=== PATIENT | female | born 1935 | race Caucasian/White ===

== ENCOUNTER → 2017-10-03 16:00 | Outpatient (CLI) | payer MEDICARE, SELFPAY ==
[2017-10-03 17:12] LABS: Absolute Lymphocyte Count 2.24 X10^3/ul (0.83-4.51); Absolute Neutrophil Count 3.2 X10^3/uL (2.0-7.7); Basophil# 0.08 X10^3/uL; Basophil% 1.2 % (0-1); Eosinophil# 0.27 X10^3/uL; Eosinophils% 4.1 % (0-5); Hematocrit 38.8 % (37-47); Hemoglobin 12.4 g/dl (12.0-15.0); Lymphocyte # 2.24 X10^3/ul (4.0); Lymphocyte % 33.6 % (19-41); Mean Corpuscular Hgb 28.4 pg (27.0-32.0); Mean Platelet Vol. 12.4 fl (6.2-12.0); Monocyte# 0.84 X10^3/uL; Monocyte% 12.6 % (0-10); Neutrophil # 3.21 X10^3/uL (2.7-7.7); Neutrophil % 48.2 % (47-70); Platelet Count 203 K/mm3 (150-450); RBC Distribution Width CV 13.9 % (11.6-14.6); RBC Distribution Width SD 45.1 fl (35.1-43.9); Red Blood Count 4.36 M/mm3 (4.2-5.4); White Blood Count 6.7 K/mm3 (4.4-11.0)
[2017-10-03 17:15] LABS: POSITIVE COUNT NO; POSITIVE DIFFERENTIAL NO; POSITIVE MORPHOLOGY NO
[2017-10-03 18:23] LABS: ALB/GLOB Ratio 1.6 RATIO (0.9-2.4); AST(SGOT) 17 U/L (15-37); Alanine Aminotransfer ALT/SGPT 17 U/L (13-56); Albumin, Serum 3.9 g/dL (3.2-5.0); Alkaline Phosphatase 61 U/L (45-117); Anion Gap 8 (5-15); BUN 18 mg/dL (7-18); BUN/Creat Ratio 20.4 RATIO (10-20); Calcium,Total 8.9 mg/dL (8.5-10.1); Chloride 107 mmol/L (98-107); Creatinine, Serum 0.88 mg/dL (0.55-1.02); EST Glomerular Filtration Rate 65 mL/min (>60); Est Glom Filt Rate - Afr Amer 79 mL/min (>60); Globulin 2.5 g/dL (2.2-4.2); Glucose 85 mg/dL (74-106); Potassium 4.1 mmol/L (3.5-5.1); Protein, Total 6.4 g/dL (6.4-8.2); Sodium Level 140 mmol/L (136-145); Thyroid Stim Hormone (TSH) 1.67 uIU/mL (0.358-3.74)
[2017-10-04 08:45] LABS: Vitamin B12 1047 pg/mL (211-911)
== END ==
PROVIDERS: Family Provider Family Medicine; PCP Family Medicine; Visit Provider Family Medicine Geriatric Medicine
DX: I10 Essential (primary) hypertension (principal); F10.27 Alcohol dependence with alcohol-induced persisting dementia
CPT/HCPCS: 36415; 80053; 82607; 82746; 84443; 85025

== ENCOUNTER → 2018-02-25 14:49 | Outpatient (CLI) | payer MEDICARE, SELFPAY ==
--- NOTE | 2018-02-25 14:56 | RAD_ITS ---
STUDY: X-RAY - ABDOMEN/PELVIS REASON FOR EXAM: Female, 82 years old. Constipation TECHNIQUE: Upright and supine KUB. COMPARISON: None. FINDINGS: Mild chronic interstitial changes of the lungs, bibasilar. Limited characterization. No cardiomegaly. Thoracolumbar S-shaped scoliosis. Mild right greater than left hip joint DJD. Grossly normal size and position of the solid organs of the abdomen. No free air. Scattered gas in the small bowel, normal pattern. Prominent distributed stool burden of large bowel and rectum consistent with constipation. RAD/Abd Inc Decub and/or Erect IMPRESSION: The bowel pattern is consistent with constipation. Electronically Signed: Jules Lincoln, at 10:51 EDT Tel , Service support ,
== END ==
PROVIDERS: Family Provider Family Medicine; PCP Family Medicine; Visit Provider Family Medicine Geriatric Medicine
DX: K59.00 Constipation, unspecified (principal)
CPT/HCPCS: 74019

== ENCOUNTER → 2018-04-08 13:01 | Outpatient (CLI) | payer MEDICARE, SELFPAY ==
[2018-04-08 15:59] LABS: Absolute Lymphocyte Count 2.17 X10^3/ul (0.83-4.51); Absolute Neutrophil Count 3.2 X10^3/uL (2.0-7.7); Basophil# 0.06 X10^3/uL; Basophil% 0.9 % (0-1); Eosinophil# 0.25 X10^3/uL; Eosinophils% 3.8 % (0-5); Hematocrit 40.1 % (37-47); Hemoglobin 12.8 g/dl (12.0-15.0); Lymphocyte # 2.17 X10^3/ul (4.0); Lymphocyte % 32.6 % (19-41); Mean Corp Hgb Conc 31.9 g/gl (32-36); Mean Corpuscular Volume 90.7 fL (81-99); Mean Platelet Vol. 12.3 fl (6.2-12.0); Monocyte# 0.97 X10^3/uL; Monocyte% 14.6 % (0-10); Neutrophil % 47.9 % (47-70); Platelet Count 193 K/mm3 (150-450); RBC Distribution Width CV 13.7 % (11.6-14.6); RBC Distribution Width SD 45.2 fl (35.1-43.9); Red Blood Count 4.42 M/mm3 (4.2-5.4); White Blood Count 6.7 K/mm3 (4.4-11.0)
[2018-04-08 16:10] LABS: POSITIVE COUNT NO; POSITIVE DIFFERENTIAL NO; POSITIVE MORPHOLOGY NO
[2018-04-08 16:31] LABS: ALB/GLOB Ratio 1.4 RATIO (0.9-2.4); AST(SGOT) 22 U/L (15-37); Alanine Aminotransfer ALT/SGPT 24 U/L (13-56); Albumin, Serum 3.7 g/dL (3.2-5.0); Alkaline Phosphatase 71 U/L (45-117); Anion Gap 10 (5-15); BUN 10 mg/dL (7-18); Calcium,Total 8.6 mg/dL (8.5-10.1); Chloride 109 mmol/L (98-107); Creatinine, Serum 0.91 mg/dL (0.55-1.02); EST Glomerular Filtration Rate 63 mL/min (>60); Est Glom Filt Rate - Afr Amer 76 mL/min (>60); Globulin 2.7 g/dL (2.2-4.2); Glucose 79 mg/dL (74-106); Potassium 4.3 mmol/L (3.5-5.1); Protein, Total 6.4 g/dL (6.4-8.2); Sodium Level 144 mmol/L (136-145); Thyroid Stim Hormone (TSH) 1.35 uIU/mL (0.358-3.74)
[2018-04-09 08:36] LABS: Vitamin D,25 Hydroxy 18.7 ng/mL (29.95-100.01)
== END ==
PROVIDERS: Visit Provider Family Medicine Geriatric Medicine
DX: E55.9 Vitamin D deficiency, unspecified (principal); R53.83 Other fatigue
CPT/HCPCS: 36415; 80053; 82306; 84443; 85025

== ENCOUNTER → 2018-10-07 12:07 | Outpatient (CLI) | payer MEDICARE, SELFPAY ==
[2018-10-07 16:42] LABS: Absolute Lymphocyte Count 2.53 X10^3/ul (0.83-4.51); Absolute Neutrophil Count 3.3 X10^3/uL (2.0-7.7); Basophil# 0.08 X10^3/uL; Basophil% 1.1 % (0-1); Eosinophils% 4.2 % (0-5); Hematocrit 42.3 % (37-47); Hemoglobin 13.2 g/dl (12.0-15.0); Lymphocyte # 2.53 X10^3/ul (4.0); Lymphocyte % 35.4 % (19-41); Mean Corp Hgb Conc 31.2 g/gl (32-36); Mean Corpuscular Hgb 28.6 pg (27.0-32.0); Mean Corpuscular Volume 91.8 fL (81-99); Mean Platelet Vol. 12.6 fl (6.2-12.0); Monocyte# 0.89 X10^3/uL; Monocyte% 12.4 % (0-10); Neutrophil # 3.33 X10^3/uL (2.7-7.7); Neutrophil % 46.6 % (47-70); Platelet Count 210 K/mm3 (150-450); RBC Distribution Width CV 14.1 % (11.6-14.6); RBC Distribution Width SD 46.8 fl (35.1-43.9); Red Blood Count 4.61 M/mm3 (4.2-5.4); White Blood Count 7.2 K/mm3 (4.4-11.0)
[2018-10-07 16:52] LABS: Vitamin D,25 Hydroxy 42.5 ng/mL (29.95-100.01)
[2018-10-07 17:01] LABS: POSITIVE COUNT NO; POSITIVE DIFFERENTIAL NO; POSITIVE MORPHOLOGY NO
[2018-10-07 17:10] LABS: ALB/GLOB Ratio 1.5 RATIO (0.9-2.4); AST(SGOT) 20 U/L (15-37); Alanine Aminotransfer ALT/SGPT 20 U/L (13-56); Alkaline Phosphatase 70 U/L (45-117); Anion Gap 11 (5-15); BUN 19 mg/dL (7-18); BUN/Creat Ratio 20.9 RATIO (10-20); Calcium,Total 8.5 mg/dL (8.5-10.1); Chloride 106 mmol/L (98-107); Creatinine, Serum 0.91 mg/dL (0.55-1.02); EST Glomerular Filtration Rate 63 mL/min (>60); Est Glom Filt Rate - Afr Amer 76 mL/min (>60); Globulin 2.7 g/dL (2.2-4.2); Glucose 76 mg/dL (74-106); Protein, Total 6.7 g/dL (6.4-8.2); Sodium Level 141 mmol/L (136-145); Thyroid Stim Hormone (TSH) 1.65 uIU/mL (0.358-3.74)
== END ==
PROVIDERS: Visit Provider Family Medicine Geriatric Medicine
DX: E55.9 Vitamin D deficiency, unspecified (principal); R53.83 Other fatigue
CPT/HCPCS: 36415; 80053; 82306; 84443; 85025

== ENCOUNTER → 2018-10-21 11:30 | Outpatient (CLI) | payer MEDICARE, SELFPAY | PROVIDERS: Family Provider Family Medicine Geriatric Medicine; PCP Family Medicine Geriatric Medicine; Referring Provider Family Medicine Geriatric Medicine; Visit Provider Family Medicine Geriatric Medicine | DX: J11.1 Influenza due to unidentified influenza virus with other respiratory manifestations (principal) | CPT/HCPCS: 87633 ==

== ENCOUNTER → 2018-11-07 11:48 | Outpatient (CLI) | payer MEDICARE, SELFPAY ==
--- NOTE | 2018-11-07 11:52 | BI_ITS ---
MAMMOGRAPHY - BILATERAL SCREENING REASON FOR EXAM: Female, 83 years old. Routine annual screening examination. PERTINENT HISTORY: Non-contributory. Remote right excisional breast biopsy and bilateral breast aspiration. TECHNIQUE: Digital bilateral breast navjot (3D mammographic acquisition) in the CC and MLO projections. 2-D mediolateral oblique (MLO) and craniocaudad (CC) views of both breasts were obtained. CAD: Full Field Digital Mammography with Computer Added Detection was performed. COMPARISON: No comparison mammograms available at this time. If any prior films become available, an addendum to this report can be generated. FINDINGS: Breast Composition: The breasts are heterogeneously dense, which may obscure small masses. There are no dominant masses or suspicious calcifications. No other significant abnormalities are identified. BI/SCREENING MAMM (CAD), BILAT IMPRESSION: Negative screening mammogram. Yearly followup mammogram recommended. (A) ASSESSMENT CATEGORY: BIRADS Category 1: Negative. A letter regarding these results will be sent to the patient by the facility within 30 days. Approximately 10% of breast cancers are not detected by mammography. A normal mammogram should not delay biopsy of a clinically suspicious abnormality. [id number] Electronically Signed: Tobi Cosme, at 15:04 EDT , Service support ,
== END ==
PROVIDERS: Family Provider Family Medicine Geriatric Medicine; PCP Family Medicine Geriatric Medicine; Referring Provider Family Medicine Geriatric Medicine; Visit Provider Family Medicine Geriatric Medicine
DX: Z12.31 Encounter for screening mammogram for malignant neoplasm of breast (principal)
CPT/HCPCS: 77063; 77067

== ENCOUNTER → 2019-01-27 16:09 | Outpatient (CLI) | payer MEDICARE, SELFPAY ==
--- NOTE | 2019-01-27 16:12 | RAD_ITS ---
STUDY: X-RAY - RIGHT HAND REASON FOR EXAM: Female, 83 years old. Fall, hand pain TECHNIQUE: 3 view(s) of the hand. COMPARISON: None. FINDINGS: Normal radiocarpal articulation. Normal distal radioulnar joint. Normal visualized carpal bones. There is degenerative joint disease of the scaphotrapezium / trapezoid articulation. The remainder of the carpal articulations are normal. There is degenerative arthrosis of the carpometacarpal (CMC) articulation of the thumb. Normal second through fifth carpometacarpal joints. Normal metacarpi. Normal metacarpophalangeal joint of the thumb. Normal interphalangeal joint of the thumb. Normal proximal and distal phalanges of the thumb. Normal metacarpophalangeal joints of the second through fifth fingers. There is diffuse articular joint space narrowing of the proximal and distal interphalangeal joints of the second through fifth fingers, but without erosive changes or periarticular soft tissue swelling. Normal phalanges of the second through fifth fingers. The soft tissue structures are unremarkable. RAD/Hand Min 3 Views IMPRESSION: 1. No acute fracture or dislocation. 2. Moderate osteoarthritis. Electronically Signed: Jules Mcelroy MD at 16:43 EDT Tel , Service support ,
--- NOTE | 2019-01-27 16:13 | RAD_ITS ---
STUDY: X-RAY - RIGHT WRIST REASON FOR EXAM: Female, 83 years old. Fall, wrist pain, hand pain TECHNIQUE: 3 view(s) of the wrist were obtained. COMPARISON: None. FINDINGS: Normal visualized distal radius and ulna. Normal radiocarpal articulation. Normal distal radioulnar articulation. Normal carpal bones. There is degenerative arthrosis of the carpal articulations. There is degenerative arthrosis of the carpometacarpal articulation of the thumb. Normal second through fifth carpometacarpal articulations. Normal visualized metacarpal bones. The soft tissue structures are unremarkable. RAD/Wrist min 3 Views IMPRESSION: 1. No acute fracture or dislocation. 2. Moderate triscaphe joint and first carpometacarpal joint arthrosis. Electronically Signed: Jules Mcelroy MD at 16:42 EDT Tel , Service support ,
== END ==
PROVIDERS: Family Provider Family Medicine Geriatric Medicine; PCP Family Medicine Geriatric Medicine; Referring Provider Family Medicine Geriatric Medicine; Visit Provider Family Medicine Geriatric Medicine
DX: M25.541 Pain in joints of right hand (principal); M25.531 Pain in right wrist
CPT/HCPCS: 73110; 73130

== ENCOUNTER → 2019-04-07 09:15 | Outpatient (CLI) | payer MEDICARE, SELFPAY ==
[2019-04-07 12:17] LABS: Absolute Neutrophil Count 2.6 X10^3/uL (2.0-7.7); Basophil# 0.02 X10^3/uL; Basophil% 0.4 % (0-1); Eosinophil# 1.09 X10^3/uL; Eosinophils% 19.5 % (0-5); Hematocrit 41.9 % (37-47); Lymphocyte % 23.2 % (19-41); Mean Corpuscular Hgb 28.4 pg (27.0-32.0); Mean Corpuscular Volume 91.5 fL (81-99); Mean Platelet Vol. 12.3 fl (6.2-12.0); Monocyte# 0.56 X10^3/uL; NRBC Flagged by Analyzer 0 % (0-5); Neutrophil % 46.4 % (47-70); Platelet Count 170 K/mm3 (150-450); RBC Distribution Width CV 13.2 % (11.6-14.6); RBC Distribution Width SD 44.7 fl (35.1-43.9); Red Blood Count 4.58 M/mm3 (4.2-5.4); White Blood Count 5.6 K/mm3 (4.4-11.0)
[2019-04-07 12:41] LABS: ALB/GLOB Ratio 1.2 RATIO (0.9-2.4); AST(SGOT) 12 U/L (15-37); Alanine Aminotransfer ALT/SGPT 16 U/L (13-56); Albumin, Serum 3.6 g/dL (3.2-5.0); Alkaline Phosphatase 80 U/L (45-117); Anion Gap 6 (5-15); BUN 12 mg/dL (7-18); BUN/Creat Ratio 12.9 RATIO (10-20); Calcium,Total 8.9 mg/dL (8.5-10.1); Chloride 108 mmol/L (98-107); Creatinine, Serum 0.93 mg/dL (0.55-1.02); EST Glomerular Filtration Rate 61 mL/min (>60); Est Glom Filt Rate - Afr Amer 74 mL/min (>60); Globulin 3.1 g/dL (2.2-4.2); Glucose 85 mg/dL (74-106); Potassium 3.7 mmol/L (3.5-5.1); Protein, Total 6.7 g/dL (6.4-8.2); Sodium Level 144 mmol/L (136-145); Thyroid Stim Hormone (TSH) 2.38 uIU/mL (0.358-3.74)
[2019-04-07 13:17] LABS: Vitamin D,25 Hydroxy 46.2 ng/mL (29.95-100.01)
== END ==
PROVIDERS: Family Provider Family Medicine Geriatric Medicine; PCP Family Medicine Geriatric Medicine; Visit Provider Family Medicine Geriatric Medicine
DX: E55.9 Vitamin D deficiency, unspecified (principal); R53.83 Other fatigue
CPT/HCPCS: 36415; 80053; 82306; 84443; 85025

== ENCOUNTER → 2019-07-13 14:33 | Outpatient (CLI) | payer MEDICARE, SELFPAY ==
[2019-04-17 11:34] VITALS: BMI 22.8
--- NOTE | 2019-07-13 14:35 | RAD_ITS ---
STUDY: X-RAY - LUMBAR SPINE REASON FOR EXAM: Female, 83 years old. Chronic back pain. TECHNIQUE: 3 view(s) of the lumbar spine were obtained. COMPARISON: None FINDINGS: Normal lumbar lordosis. There is mild kyphosis at thoracolumbar junction. There is scoliosis of the lumbar spine, convexity to the left. There is a normal alignment of the vertebrae. There is diffuse demineralization with multi-level endplate spondylosis. There is multi-level degenerative disc disease with multi-level disc space narrowing. There is mild wedging of the T12 vertebral body consistent with mild compression fracture. Multilevel bilateral facet hypertrophic changes noted. There is atherosclerotic calcification of the abdominal aorta without a demonstrated aneurysm. RAD/Lumbar Spine 2 or 3 Views IMPRESSION: Osteopenia along with multilevel degenerative disease as described above. Mild compression fracture of T12, stable since 07/13/2019. Electronically Signed: Jessica Payne MD at 21:14 EST , Service support ,
--- NOTE | 2019-07-13 14:35 | RAD_ITS ---
STUDY: X-RAY - ABDOMEN/PELVIS REASON FOR EXAM: Female, 83 years old. Abdominal pain. TECHNIQUE: AP supine and upright views of the abdomen and pelvis. COMPARISON: 02/25/2018. FINDINGS: Normal visualized lung bases. There is abundant fecal debris within the colon consistent with constipation. The small bowel is normal. There is no demonstrated free abdominal air. The visualized liver, spleen and kidneys are grossly normal in size and morphology. Normal soft tissue structures. Scoliosis of the lumbar spine, convexity to the left. Bilateral degenerative disease of the hips, right more severe compared to left. Degenerative disease of the SI joints and pubic symphysis. RAD/Abd Inc Decub and/or Erect IMPRESSION: Constipation. Electronically Signed: Jessica Payne MD at 21:12 EST , Service support ,
--- NOTE | 2019-07-13 14:36 | RAD_ITS ---
STUDY: X-RAY - THORACIC SPINE REASON FOR EXAM: Female, 83 years old. Chronic back pain. TECHNIQUE: 3 view(s) of the thoracic spine were obtained. COMPARISON: None. FINDINGS: There is an increase in the normal thoracic kyphosis. There is mild scoliosis of thoracolumbar spine, convexity to the right. There is demineralization of the thoracic spine with endplate spondylosis. There is multilevel disc space narrowing of the thoracic spine. There is multilevel vacuum phenomenon through the lower thoracic spine. There is mild to moderate compression fracture of T12. There is a decrease in vertebral body height of L1 due to concavity of the superior endplate, likely due to underlying chronic osteopenia and degenerative disease. The soft tissue structures are unremarkable. RAD/Thoracic Spine 2 Views IMPRESSION: Diffuse osteopenia along with multilevel degenerative disease as described above. Compression fracture of T12 with slight decrease in vertebral body of L1. Electronically Signed: Jessica Payne MD at 21:19 EST , Service support ,
[2019-07-13 16:56] LABS: Absolute Lymphocyte Count 2.41 X10^3/uL (0.83-4.51); Basophil# 0.09 X10^3/uL; Basophil% 1.2 % (0-1); Eosinophil# 0.32 X10^3/uL; Eosinophils% 4.2 % (0-5); Hematocrit 44.3 % (37-47); Hemoglobin 13.7 g/dL (12.0-15.0); Lymphocyte # 2.41 X10^3/ul (4.0); Lymphocyte % 31.8 % (19-41); Mean Corp Hgb Conc 30.9 g/dL (32-36); Mean Corpuscular Hgb 28.5 pg (27.0-32.0); Mean Corpuscular Volume 92.1 fL (81-99); Monocyte# 0.74 X10^3/uL; Monocyte% 9.8 % (0-10); NRBC Flagged by Analyzer 0 % (0-5); Neutrophil # 3.97 X10^3/uL (2.7-7.7); Neutrophil % 52.5 % (47-70); Platelet Count 233 K/mm3 (150-450); RBC Distribution Width CV 13.8 % (11.6-14.6); RBC Distribution Width SD 46.6 fl (35.1-43.9); Red Blood Count 4.81 M/mm3 (4.2-5.4); White Blood Count 7.6 K/mm3 (4.4-11.0)
[2019-07-13 17:22] LABS: ALB/GLOB Ratio 1.5 RATIO (0.9-2.4); AST(SGOT) 22 U/L (15-37); Alanine Aminotransfer ALT/SGPT 22 U/L (13-56); Albumin, Serum 4.1 g/dL (3.2-5.0); Alkaline Phosphatase 84 U/L (45-117); Anion Gap 5 (5-15); BUN 21 mg/dL (7-18); BUN/Creat Ratio 20.6 RATIO (10-20); Calcium,Total 9.7 mg/dL (8.5-10.1); Chloride 108 mmol/L (98-107); Creatinine, Serum 1.02 mg/dL (0.55-1.02); EST Glomerular Filtration Rate 55 mL/min (>60); Est Glom Filt Rate - Afr Amer 67 mL/min (>60); Globulin 2.8 g/dL (2.2-4.2); Glucose 94 mg/dL (74-106); Potassium 4.2 mmol/L (3.5-5.1); Protein, Total 6.9 g/dL (6.4-8.2); Sodium Level 140 mmol/L (136-145)
== END ==
PROVIDERS: Family Provider Family Medicine Geriatric Medicine; PCP Family Medicine Geriatric Medicine; Referring Provider Family Medicine Geriatric Medicine; Visit Provider Family Medicine Geriatric Medicine
DX: R53.83 Other fatigue (principal); M54.9 Dorsalgia, unspecified; R10.9 Unspecified abdominal pain
CPT/HCPCS: 36415; 72070; 72100; 74019; 80053; 85025

== ENCOUNTER → 2019-10-12 11:19 | Outpatient (CLI) | payer MEDICARE, SELFPAY ==
[2019-04-17 11:34] VITALS: BMI 22.8
--- NOTE | 2019-10-12 12:15 | RAD_ITS ---
STUDY: X-RAY CHEST REASON FOR EXAM: Female, 84 years old. patient states she has no appetite, unintentional weight loss, no other symptoms or complaints TECHNIQUE: PA and lateral views of the chest. COMPARISON: None. FINDINGS: The lungs are clear and expanded. There is no demonstrated pleural abnormality. Normal size heart. Normal mediastinum and cristina. Normal visualized pulmonary arteries. There is atherosclerotic calcification of the aortic arch with tortuosity. There are diffuse degenerative changes of the visualized thoracic spine. There is degenerative osteoarthritis of the bilateral shoulders. There is no demonstrated abnormality of the visualized soft tissue structures of the upper abdomen. RAD/Chest PA and Lateral IMPRESSION: No acute cardiopulmonary disease. Electronically Signed: Jessica Payne MD at 0:14 EDT , Service support ,
[2019-10-12 12:23] LABS: Absolute Lymphocyte Count 2.28 X10^3/uL (0.83-4.51); Absolute Neutrophil Count 2.9 X10^3/uL (2.0-7.7); Basophil# 0.08 X10^3/uL; Basophil% 1.2 % (0-1); Eosinophil# 0.26 X10^3/uL; Eosinophils% 4.1 % (0-5); Hematocrit 39.1 % (37-47); Hemoglobin 11.9 g/dL (12.0-15.0); Lymphocyte # 2.28 X10^3/ul (4.0); Lymphocyte % 35.6 % (19-41); Mean Corp Hgb Conc 30.4 g/dL (32-36); Mean Corpuscular Hgb 28.4 pg (27.0-32.0); Mean Corpuscular Volume 93.3 fL (81-99); Mean Platelet Vol. 12.8 fl (6.2-12.0); Monocyte% 12.5 % (0-10); NRBC Flagged by Analyzer 0 % (0-5); Neutrophil # 2.94 X10^3/uL (2.7-7.7); Neutrophil % 45.8 % (47-70); Platelet Count 224 K/mm3 (150-450); RBC Distribution Width CV 14.6 % (11.6-14.6); Red Blood Count 4.19 M/mm3 (4.2-5.4); White Blood Count 6.4 K/mm3 (4.4-11.0)
[2019-10-12 12:37] LABS: ALB/GLOB Ratio 1.4 RATIO (0.9-2.4); AST(SGOT) 20 U/L (15-37); Alanine Aminotransfer ALT/SGPT 27 U/L (13-56); Albumin, Serum 3.7 g/dL (3.2-5.0); Alkaline Phosphatase 71 U/L (45-117); Anion Gap 8 (5-15); BUN 18 mg/dL (7-18); BUN/Creat Ratio 22.7 RATIO (10-20); Calcium,Total 8.6 mg/dL (8.5-10.1); Chloride 106 mmol/L (98-107); Creatinine, Serum 0.79 mg/dL (0.55-1.02); EST Glomerular Filtration Rate 73 mL/min (>60); Est Glom Filt Rate - Afr Amer 89 mL/min (>60); Globulin 2.7 g/dL (2.2-4.2); Glucose 91 mg/dL (74-106); Potassium 4.6 mmol/L (3.5-5.1); Protein, Total 6.4 g/dL (6.4-8.2); Sodium Level 141 mmol/L (136-145); Thyroid Stim Hormone (TSH) 1.52 uIU/mL (0.358-3.74); Vitamin D,25 Hydroxy 72.4 ng/mL
== END ==
PROVIDERS: PCP Family Medicine Geriatric Medicine; Referring Provider Family Medicine Geriatric Medicine; Visit Provider Family Medicine Geriatric Medicine
DX: E55.9 Vitamin D deficiency, unspecified (principal); R53.83 Other fatigue; R63.4 Abnormal weight loss
CPT/HCPCS: 36415; 71046; 80053; 82306; 84443; 85025

== ENCOUNTER → 2019-12-25 12:43 | Outpatient (CLI) | payer MEDICARE, SELFPAY ==
[2019-04-17 11:34] VITALS: BMI 22.8
--- NOTE | 2019-12-25 12:45 | BI_ITS ---
MAMMOGRAPHY - BILATERAL SCREENING REASON FOR EXAM: Female, 84 years old. Routine annual screening examination. PERTINENT HISTORY: Non-contributory. Remote right excisional breast biopsy. TECHNIQUE: Digital bilateral breast shayy (3D mammographic acquisition) in the CC and MLO projections. 2-D mediolateral oblique (MLO) and craniocaudad (CC) views of both breasts were obtained. CAD: Full Field Digital Mammography with Computer Added Detection was performed. COMPARISON: Comparison is made with prior examination dated November 07, 2018. FINDINGS: Breast Composition: The breasts are heterogeneously dense, which may obscure small masses. There are no dominant masses or suspicious calcifications. No other significant abnormalities are identified. There has been no significant change since the prior study. BI/SCREEN MAMM (CAD) W/SHAYY BILAT IMPRESSION: Stable bilateral screening mammogram. Yearly follow-up mammogram recommended. (A) ASSESSMENT CATEGORY: BIRADS Category 1: Negative. A letter regarding these results will be sent to the patient by the facility within 30 days. Approximately 10% of breast cancers are not detected by mammography. A normal mammogram should not delay biopsy of a clinically suspicious abnormality. [id number] Electronically Signed: Tobi Cosme, at 13:32 EDT , Service support ,
== END ==
PROVIDERS: PCP Family Medicine Geriatric Medicine; Referring Provider Family Medicine Geriatric Medicine; Visit Provider Family Medicine Geriatric Medicine
DX: Z12.31 Encounter for screening mammogram for malignant neoplasm of breast (principal)
CPT/HCPCS: 77063; 77067

== ENCOUNTER → 2020-04-12 11:53 | Outpatient (CLI) | payer MEDICARE, SELFPAY ==
[2019-04-17 11:34] VITALS: BMI 22.8
[2020-04-12 12:45] LABS: Absolute Lymphocyte Count 2.12 X10^3/uL (0.83-4.51); Basophil# 0.07 X10^3/uL; Basophil% 1.1 % (0-1); Eosinophil# 0.19 X10^3/uL; Eosinophils% 3.1 % (0-5); Hematocrit 40.2 % (37-47); Hemoglobin 12.5 g/dL (12.0-15.0); Lymphocyte # 2.12 X10^3/ul (4.0); Lymphocyte % 34.5 % (19-41); Mean Corp Hgb Conc 31.1 g/dL (32-36); Mean Corpuscular Hgb 28.9 pg (27.0-32.0); Mean Corpuscular Volume 92.8 fL (81-99); Mean Platelet Vol. 12.4 fl (6.2-12.0); Monocyte# 0.76 X10^3/uL; Monocyte% 12.4 % (0-10); NRBC Flagged by Analyzer 0 % (0-5); Neutrophil # 2.97 X10^3/uL (2.7-7.7); Neutrophil % 48.4 % (47-70); Platelet Count 223 K/mm3 (150-450); RBC Distribution Width CV 13.5 % (11.6-14.6); RBC Distribution Width SD 45.9 fl (35.1-43.9); Red Blood Count 4.33 M/mm3 (4.2-5.4); White Blood Count 6.1 K/mm3 (4.4-11.0)
[2020-04-12 13:22] LABS: Vitamin D,25 Hydroxy 59.5 ng/mL
[2020-04-12 13:27] LABS: ALB/GLOB Ratio 1.5 RATIO (0.9-2.4); AST(SGOT) 16 U/L (15-37); Alanine Aminotransfer ALT/SGPT 17 U/L (13-56); Albumin, Serum 3.8 g/dL (3.2-5.0); Alkaline Phosphatase 77 U/L (45-117); Anion Gap 3 (5-15); BUN 12 mg/dL (7-18); BUN/Creat Ratio 14.6 RATIO (10-20); Calcium,Total 8.6 mg/dL (8.5-10.1); Chloride 111 mmol/L (98-107); Creatinine, Serum 0.82 mg/dL (0.55-1.02); EST Glomerular Filtration Rate 71 mL/min (>60); Est Glom Filt Rate - Afr Amer 85 mL/min (>60); Globulin 2.6 g/dL (2.2-4.2); Glucose 77 mg/dL (74-106); Protein, Total 6.4 g/dL (6.4-8.2); Sodium Level 144 mmol/L (136-145); Thyroid Stim Hormone (TSH) 1.57 uIU/mL (0.358-3.74)
== END ==
PROVIDERS: PCP Family Medicine Geriatric Medicine; Visit Provider Family Medicine Geriatric Medicine
DX: E55.9 Vitamin D deficiency, unspecified (principal); R53.83 Other fatigue
CPT/HCPCS: 36415; 80053; 82306; 84443; 85025

== ENCOUNTER → 2020-08-16 19:50 | Outpatient (CLI) | payer MEDICARE, SELFPAY ==
[2020-08-16 18:09] VITALS: BMI 19.5
== END ==
PROVIDERS: PCP Family Medicine Geriatric Medicine; Referring Provider Physician Assistant Surgical; Visit Provider Physician Assistant Surgical
DX: R19.7 Diarrhea, unspecified (principal)
CPT/HCPCS: 87635; U0005; U0003

== ENCOUNTER → 2020-10-12 10:25 | Outpatient (CLI) | payer MEDICARE, SELFPAY ==
[2020-08-16 18:09] VITALS: BMI 19.5
[2020-10-12 12:26] LABS: Absolute Lymphocyte Count 2.11 X10^3/uL (0.83-4.51); Absolute Neutrophil Count 2.6 X10^3/uL (2.0-7.7); Basophil# 0.07 X10^3/uL; Basophil% 1.2 % (0-1); Eosinophil# 0.23 X10^3/uL; Eosinophils% 3.9 % (0-5); Hematocrit 39.6 % (37-47); Hemoglobin 12.3 g/dL (12.0-15.0); Lymphocyte # 2.11 X10^3/ul (4.0); Lymphocyte % 35.9 % (19-41); Mean Corp Hgb Conc 31.1 g/dL (32-36); Mean Corpuscular Hgb 28.3 pg (27.0-32.0); Mean Platelet Vol. 12.1 fl (6.2-12.0); Monocyte# 0.84 X10^3/uL; Monocyte% 14.3 % (0-10); NRBC Flagged by Analyzer 0 % (0-5); Neutrophil # 2.61 X10^3/uL (2.7-7.7); Neutrophil % 44.4 % (47-70); Platelet Count 219 K/mm3 (150-450); RBC Distribution Width CV 13.9 % (11.6-14.6); RBC Distribution Width SD 46.9 fl (35.1-43.9); Red Blood Count 4.35 M/mm3 (4.2-5.4); White Blood Count 5.9 K/mm3 (4.4-11.0)
[2020-10-12 12:49] LABS: Vitamin D,25 Hydroxy 41.3 ng/mL
[2020-10-12 12:57] LABS: ALB/GLOB Ratio 1.5 RATIO (0.9-2.4); AST(SGOT) 16 U/L (15-37); Alanine Aminotransfer ALT/SGPT 23 U/L (13-56); Albumin, Serum 3.9 g/dL (3.2-5.0); Alkaline Phosphatase 70 U/L (45-117); Anion Gap 7 (5-15); BUN 13 mg/dL (7-18); BUN/Creat Ratio 14.5 RATIO (10-20); Chloride 107 mmol/L (98-107); EST Glomerular Filtration Rate 64 mL/min (>60); Est Glom Filt Rate - Afr Amer 77 mL/min (>60); Globulin 2.6 g/dL (2.2-4.2); Glucose 97 mg/dL (74-106); Potassium 4.5 mmol/L (3.5-5.1); Protein, Total 6.5 g/dL (6.4-8.2); Sodium Level 141 mmol/L (136-145); Thyroid Stim Hormone (TSH) 1.68 uIU/mL (0.358-3.74)
== END ==
PROVIDERS: PCP Family Medicine Geriatric Medicine; Visit Provider Family Medicine Geriatric Medicine
DX: E55.9 Vitamin D deficiency, unspecified (principal); R53.83 Other fatigue
CPT/HCPCS: 36415; 80053; 82306; 84443; 85025

== ENCOUNTER → 2020-12-23 12:56 | Outpatient (CLI) | payer MEDICARE, SELFPAY ==
[2020-08-16 18:09] VITALS: BMI 19.5
--- NOTE | 2020-12-23 13:18 | BI_ITS ---
MAMMOGRAPHY - BILATERAL SCREENING 3-D TOMOSYNTHESIS REASON FOR EXAM: Female, 85 years old. Routine screening PERTINENT HISTORY: No significant family history. TECHNIQUE: 2-D mammograms and 3-D Tomosynthesis of the breast (s) were performed. CAD was performed. COMPARISON: 12/25/2019 FINDINGS: The breast composition is heterogeneously dense that can obscure small breast masses. Scattered benign calcifications are seen. No dense spiculated masses or suspicious microcalcifications are identified. No architectural distortion is identified. There is no skin thickening or retraction. There has been no significant change since the prior study. BI/SCRN MAMM (CAD)W/SHAYY BILAT IMPRESSION: No mammographic signs of malignancy. Routine yearly mammograms recommended. ASSESSMENT CATEGORY: BIRADS Category 1: Negative. A letter regarding these results will be sent to the patient by the facility within 30 days. FOLLOW UP RECOMMENDATION: Yearly follow up mammogram recommended. (A) Approximately 10% of breast cancers are not detected by mammography. A normal mammogram should not delay biopsy of a clinically suspicious abnormality. Electronically Signed: Cricket Baum MD at 14:25 EDT , Service support ,
== END ==
PROVIDERS: PCP Family Medicine Geriatric Medicine; Referring Provider Family Medicine Geriatric Medicine; Visit Provider Family Medicine Geriatric Medicine
DX: Z12.31 Encounter for screening mammogram for malignant neoplasm of breast (principal)
CPT/HCPCS: 77063; 77067

== ENCOUNTER → 2021-04-12 11:47 | Outpatient (CLI) | payer MEDICARE, SELFPAY ==
[2021-04-12 12:35] LABS: Absolute Lymphocyte Count 1.65 X10^3/uL (0.83-4.51); Absolute Neutrophil Count 3.4 X10^3/uL (2.0-7.7); Basophil% 1.6 % (0-1); Eosinophil# 0.44 X10^3/uL; Eosinophils% 6.8 % (0-5); Hemoglobin 12.6 g/dL (12.0-15.0); Lymphocyte # 1.65 X10^3/ul (0.83-4.51); Lymphocyte % 25.6 % (19-41); Mean Corp Hgb Conc 31.5 g/dL (32-36); Mean Corpuscular Hgb 28.4 pg (27.0-32.0); Mean Corpuscular Volume 90.1 fL (81-99); Mean Platelet Vol. 11.5 fl (6.2-12.0); Monocyte# 0.84 X10^3/uL; NRBC Flagged by Analyzer 0 % (0-5); Neutrophil % 52.7 % (47-70); Platelet Count 211 K/mm3 (150-450); RBC Distribution Width CV 13.4 % (11.6-14.6); RBC Distribution Width SD 44.3 fl (35.1-43.9); Red Blood Count 4.44 M/mm3 (4.2-5.4); White Blood Count 6.5 K/mm3 (4.4-11.0)
[2021-04-12 13:06] LABS: Vitamin D,25 Hydroxy 40.9 ng/mL
[2021-04-12 13:12] LABS: ALB/GLOB Ratio 1.3 RATIO (0.9-2.4); AST(SGOT) 18 U/L (15-37); Alanine Aminotransfer ALT/SGPT 21 U/L (13-56); Albumin, Serum 3.7 g/dL (3.2-5.0); Alkaline Phosphatase 80 U/L (45-117); Anion Gap 3 (5-15); BUN 15 mg/dL (7-18); BUN/Creat Ratio 19.5 RATIO (10-20); Chloride 108 mmol/L (98-107); Creatinine, Serum 0.77 mg/dL (0.55-1.02); EST Glomerular Filtration Rate 76 mL/min (>60); Est Glom Filt Rate - Afr Amer 92 mL/min (>60); Globulin 2.9 g/dL (2.2-4.2); Glucose 88 mg/dL (74-106); Potassium 4.2 mmol/L (3.5-5.1); Protein, Total 6.6 g/dL (6.4-8.2); Sodium Level 140 mmol/L (136-145); Thyroid Stim Hormone (TSH) 1.41 uIU/mL (0.358-3.74)
== END ==
PROVIDERS: PCP Family Medicine Geriatric Medicine; Visit Provider Family Medicine Geriatric Medicine
DX: E55.9 Vitamin D deficiency, unspecified (principal); R53.83 Other fatigue
CPT/HCPCS: 36415; 80053; 82306; 84443; 85025

== ENCOUNTER → 2021-07-13 09:43 | Outpatient (CLI) | payer MEDICARE, SELFPAY | PROVIDERS: PCP Family Medicine Geriatric Medicine; Referring Provider Family Medicine Geriatric Medicine; Visit Provider Family Medicine Geriatric Medicine | DX: R68.83 Chills (without fever) (principal) | CPT/HCPCS: 87635; 87804; 87807; C9803; U0005; U0003 ==

== ENCOUNTER 2021-10-18 11:26 | Outpatient (CLI) | payer MEDICARE, SELFPAY ==
[2021-10-18 12:14] LABS: Absolute Lymphocyte Count 2.18 X10^3/uL (0.83-4.51); Absolute Neutrophil Count 4.2 X10^3/uL (2.0-7.7); Basophil# 0.09 X10^3/uL; Basophil% 1.1 % (0-1); Eosinophil# 0.41 X10^3/uL; Eosinophils% 5.1 % (0-5); Hematocrit 39.1 % (37-47); Hemoglobin 12.8 g/dL (12.0-15.0); Lymphocyte # 2.18 X10^3/ul (0.83-4.51); Lymphocyte % 27.1 % (19-41); Mean Corp Hgb Conc 32.7 g/dL (32-36); Mean Corpuscular Hgb 29.4 pg (27.0-32.0); Mean Corpuscular Volume 89.7 fL (81-99); Mean Platelet Vol. 11.8 fl (6.2-12.0); Monocyte# 1.05 X10^3/uL; NRBC Flagged by Analyzer 0 % (0-5); Neutrophil # 4.24 X10^3/uL (2.7-7.7); Neutrophil % 52.7 % (47-70); Platelet Count 256 K/mm3 (150-450); RBC Distribution Width CV 13.8 % (11.6-14.6); RBC Distribution Width SD 45.4 fl (35.1-43.9); Red Blood Count 4.36 M/mm3 (4.2-5.4); White Blood Count 8.1 K/mm3 (4.4-11.0)
[2021-10-18 12:33] LABS: Vitamin D,25 Hydroxy 53.3 ng/mL
[2021-10-18 13:00] LABS: ALB/GLOB Ratio 1.5 RATIO (0.9-2.4); AST(SGOT) 15 U/L (15-37); Alanine Aminotransfer ALT/SGPT 19 U/L (13-56); Albumin, Serum 3.9 g/dL (3.2-5.0); Alkaline Phosphatase 76 U/L (45-117); Anion Gap 4 (5-15); BUN 17 mg/dL (7-18); BUN/Creat Ratio 21.1 RATIO (10-20); Calcium,Total 8.8 mg/dL (8.5-10.1); Chloride 102 mmol/L (98-107); Creatinine, Serum 0.81 mg/dL (0.55-1.02); EST Glomerular Filtration Rate 72 mL/min (>60); Est Glom Filt Rate - Afr Amer 87 mL/min (>60); Globulin 2.6 g/dL (2.2-4.2); Glucose 99 mg/dL (74-106); Potassium 4.6 mmol/L (3.5-5.1); Protein, Total 6.5 g/dL (6.4-8.2); Sodium Level 136 mmol/L (136-145); Thyroid Stim Hormone (TSH) 2.22 uIU/mL (0.358-3.74)
== END 2021-10-18 23:59 | disposition home or self-care (01) ==
PROVIDERS: PCP Family Medicine Geriatric Medicine; Visit Provider Family Medicine Geriatric Medicine
DX: E55.9 Vitamin D deficiency, unspecified (principal); R53.83 Other fatigue
CPT/HCPCS: 36415; 80053; 82306; 84443; 85025

== ENCOUNTER 2021-10-26 10:50 | Outpatient (CLI) | payer MEDICARE, SELFPAY ==
--- NOTE | 2021-10-26 10:55 | BD_ITS ---
STUDY: DUAL ENERGY X-RAY ABSORPTIOMETRY / DXA REASON FOR EXAM: Female, 86 years old. [id number]. The patient is postmenopausal. TECHNIQUE: Bone Mineral Density (BMD) measurements of lumbar spine and bilateral hips were obtained. COMPARISON: None. FINDINGS: Lumbar Spine (L1-L4): g/cm2 (1.029) / T-score (0.5) / Z-score (3.1) Findings are suggestive of normal bone density with a low fracture risk. Left Femur Total: g/cm2 (0.704) / T-score (-2.0) / Z-score (0.4) Left Femoral Neck: g/cm2 (0.582) / T-score (-2.4) / Z-score (0.1) Right Femur Total: g/cm2 (0.776) / T-score (-1.4) / Z-score (1.0) Right Femoral Neck: g/cm2 (0.680) / T-score (-1.5) / Z-score (1.0) BD/Dexa Bone Density Study IMPRESSION: The patient is considered osteopenic as outlined below according to World [employer] Organization (WHO) criteria with a high fracture risk. Reference Information: The T-score is the number of standard deviations above or below the standard which is normal for young adults at their peak bone mineral density. The World Health Organization (WHO) interprets the T-scores as follows: Above -1 Normal bone density Between -1 and -2.5 Osteopenia Equal to / or below -2.5 Osteoporosis As a practical clinical guideline, osteopenia may be graded as follows: Mild -1 through -1.5 Moderate -1.6 through -2.0 Severe -2.1 through -2.4 The Z-score is the number of standard deviations above or below age-matched controls. A Z-score of less than -1.5 would be considered abnormal. References: 1. NIH Osteoporosis and Related Bone Diseases www osteo.org 2. International Society for Clinical Densitometry www iscd.org 3. National Osteoporosis Foundation www nof.org Electronically Signed: Tobi Cosme MD at 15:26 EDT ,
== END 2021-10-26 23:59 | disposition home or self-care (01) ==
LOC: OPBD 10:51
PROVIDERS: PCP Family Medicine Geriatric Medicine; Visit Provider Family Medicine Geriatric Medicine
DX: Z78.0 Asymptomatic menopausal state (principal)
CPT/HCPCS: 77080

== ENCOUNTER → 2022-02-27 | Outpatient (CLI) | payer MEDICARE, SELFPAY ==
--- NOTE | 2022-02-27 12:40 | RAD_ITS ---
STUDY: X-RAY - MANDIBLE (COMPLETE) REASON FOR EXAM: Female, 86 years old. Jaw pain. TECHNIQUE: 5 view(s) of the mandible were obtained. COMPARISON: None. FINDINGS: Osteopenia. Normal mandible. Normal visualized right temporomandibular joint. Normal visualized left temporomandibular joint. Severe cervical spondylosis. Multiple restorations. RAD/Mandible Min 4 Views IMPRESSION: Severe cervical spondylosis. No mandibular abnormality identified. Electronically Signed: Macario Monique MD at 10:05 EDT ,
--- NOTE | 2022-02-27 12:45 | RAD_ITS ---
STUDY: X-RAY - CERVICAL SPINE REASON FOR EXAM: Female, 86 years old. Neck pain. TECHNIQUE: 3 view(s) of the cervical spine were obtained. COMPARISON: None FINDINGS: Osteopenia. Normal anterior atlantoaxial articulation. Normal odontoid process. Normal cervical lordosis. Marked uncovertebral and facet sclerosis. Diffuse intervertebral disc space narrowing most marked at C3-4, C4-5, C5-6 and to a lesser degree C6-7. Osteophyte formation most marked at C3-4, C4-5 and C5-6. Bilateral carotid calcification. RAD/Cerv Spine 2 or 3 Views IMPRESSION: Osteopenia with moderate to marked cervical spondylosis as described. No acute abnormality, evidence of erosive changes or fusion. Electronically Signed: Macario Monique MD at 10:06 EDT ,
[2022-02-27 13:26] LABS: Absolute Lymphocyte Count 1.84 X10^3/uL (0.83-4.51); Absolute Neutrophil Count 4.2 X10^3/uL (2.0-7.7); Basophil# 0.06 X10^3/uL; Basophil% 0.8 % (0-1); Eosinophils% 2.8 % (0-5); Hematocrit 43.2 % (37-47); Hemoglobin 13.7 g/dL (12.0-15.0); Lymphocyte # 1.84 X10^3/ul (0.83-4.51); Lymphocyte % 25.5 % (19-41); Mean Corp Hgb Conc 31.7 g/dL (32-36); Mean Corpuscular Hgb 28.8 pg (27.0-32.0); Mean Corpuscular Volume 90.9 fL (81-99); Mean Platelet Vol. 11.7 fl (6.2-12.0); Monocyte# 0.91 X10^3/uL; Monocyte% 12.6 % (0-10); NRBC Flagged by Analyzer 0 % (0-5); Neutrophil # 4.16 X10^3/uL (2.7-7.7); Neutrophil % 57.7 % (47-70); Platelet Count 237 K/mm3 (150-450); RBC Distribution Width CV 13.5 % (11.6-14.6); RBC Distribution Width SD 45.6 fl (35.1-43.9); Red Blood Count 4.75 M/mm3 (4.2-5.4); White Blood Count 7.2 K/mm3 (4.4-11.0)
[2022-02-27 13:40] LABS: BNP,B-Type NATRIURETIC PEPTIDE 79.2 pg/mL (0-100)
[2022-02-27 13:45] LABS: ALB/GLOB Ratio 1.4 RATIO (0.9-2.4); AST(SGOT) 16 U/L (15-37); Alanine Aminotransfer ALT/SGPT 18 U/L (13-56); Alkaline Phosphatase 81 U/L (45-117); Anion Gap 4 (5-15); BUN 23 mg/dL (7-18); BUN/Creat Ratio 20.5 RATIO (10-20); CPK Total, Creatine Kinase 83 U/L (26-192); Calcium,Total 9.3 mg/dL (8.5-10.1); Chloride 104 mmol/L (98-107); Creatinine, Serum 1.12 mg/dL (0.55-1.02); EST Glomerular Filtration Rate 49 mL/min (>60); Est Glom Filt Rate - Afr Amer 59 mL/min (>60); Globulin 2.8 g/dL (2.2-4.2); Glucose 90 mg/dL (74-106); Potassium 4.3 mmol/L (3.5-5.1); Protein, Total 6.8 g/dL (6.4-8.2); Sodium Level 136 mmol/L (136-145); Thyroid Stim Hormone (TSH) 1.82 uIU/mL (0.358-3.74); Troponin-I HS 10 pg/mL (3.0-54.0)
[2022-03-01 12:52] LABS: Myoglobin, Serum 66 ng/mL (25-58)
== END | disposition home or self-care (01) ==
PROVIDERS: PCP Family Medicine Geriatric Medicine; Referring Provider Family Medicine Geriatric Medicine; Visit Provider Family Medicine Geriatric Medicine
DX: M54.2 Cervicalgia (principal); R68.84 Jaw pain; R53.83 Other fatigue; R07.9 Chest pain, unspecified; N39.0 Urinary tract infection, site not specified
CPT/HCPCS: 36415; 70110; 72040; 80053; 82550; 83874; 83880; 84443; 84484; 85025; 87086; 87088

== ENCOUNTER → 2022-03-13 | Outpatient (CLI) | payer MEDICARE, SELFPAY ==
--- NOTE | 2022-03-13 13:57 | BI_ITS ---
MAMMOGRAPHY - BILATERAL SCREENING REASON FOR EXAM: Female, 86 years old. Routine annual screening examination. PERTINENT HISTORY: Non-contributory. Remote right excisional breast biopsy. TECHNIQUE: Digital bilateral breast shayy (3D mammographic acquisition) in the CC and MLO projections. 2-D mediolateral oblique (MLO) and craniocaudad (CC) views of both breasts were obtained. CAD: Full Field Digital Mammography with Computer Added Detection was performed. COMPARISON: Comparison is made with prior study dated 12/23/2020 and 12/25/2019. FINDINGS: Breast Composition: The breasts are heterogeneously dense, which may obscure small masses. There are no dominant masses or suspicious calcifications. Stable small benign-appearing bilateral axillary No other significant abnormalities are identified. There has been no significant change since the prior study. BI/SCRN MAMM (CAD)W/SHAYY BILAT IMPRESSION: Stable bilateral screening mammogram. Yearly follow-up mammogram recommended. (A) ASSESSMENT CATEGORY: BIRADS Category 2: Benign. A letter regarding these results will be sent to the patient by the facility within 30 days. Approximately 10% of breast cancers are not detected by mammography. A normal mammogram should not delay biopsy of a clinically suspicious abnormality. [id number] Electronically Signed: Tobi Cosme MD at 15:39 EDT ,
== END | disposition home or self-care (01) ==
LOC: OPBI 13:54
PROVIDERS: PCP Family Medicine Geriatric Medicine; Visit Provider Family Medicine Geriatric Medicine
DX: Z12.31 Encounter for screening mammogram for malignant neoplasm of breast (principal)
CPT/HCPCS: 77063; 77067

== ENCOUNTER → 2022-04-06 | Outpatient (CLI) | payer MEDICARE, SELFPAY ==
--- NOTE | 2022-04-06 11:18 | US_ITS ---
STUDY: SUPERFICIAL ULTRASOUND - RIGHT UPPER EXTREMITY. REASON FOR EXAM: Female, 86 years old. LIPOMA TECHNIQUE: A superficial ultrasound was performed with real-time and static crocker-scale imaging. COMPARISON: None. FINDINGS: Imaging of the medial aspect of the elbow was obtained. No sonographic abnormality is seen. US/Ext Non Vasc Limited/Soft Tiss IMPRESSION: No sonographic abnormality is seen. Electronically Signed: Tobi Cosme MD at 12:55 EDT ,
== END | disposition home or self-care (01) ==
LOC: US 11:16
PROVIDERS: PCP Family Medicine Geriatric Medicine; Referring Provider Family Medicine Geriatric Medicine; Visit Provider Family Medicine Geriatric Medicine
DX: D17.9 Benign lipomatous neoplasm, unspecified (principal)
CPT/HCPCS: 76882

== ENCOUNTER → 2022-04-18 | Outpatient (CLI) | payer MEDICARE, SELFPAY ==
[2022-04-18 12:06] LABS: Absolute Lymphocyte Count 1.99 X10^3/uL (0.83-4.51); Absolute Neutrophil Count 3.5 X10^3/uL (2.0-7.7); Basophil# 0.08 X10^3/uL; Basophil% 1.2 % (0-1); Eosinophil# 0.22 X10^3/uL; Eosinophils% 3.3 % (0-5); Hematocrit 40.6 % (37-47); Hemoglobin 13.2 g/dL (12.0-15.0); Lymphocyte # 1.99 X10^3/ul (0.83-4.51); Lymphocyte % 29.5 % (19-41); Mean Corp Hgb Conc 32.5 g/dL (32-36); Mean Corpuscular Hgb 29.9 pg (27.0-32.0); Mean Corpuscular Volume 92.1 fL (81-99); Mean Platelet Vol. 11.6 fl (6.2-12.0); Monocyte# 0.91 X10^3/uL; Monocyte% 13.5 % (0-10); NRBC Flagged by Analyzer 0 % (0-5); Neutrophil % 51.8 % (47-70); Platelet Count 226 K/mm3 (150-450); RBC Distribution Width CV 13.7 % (11.6-14.6); RBC Distribution Width SD 46.5 fl (35.1-43.9); Red Blood Count 4.41 M/mm3 (4.2-5.4); White Blood Count 6.8 K/mm3 (4.4-11.0)
[2022-04-18 12:20] LABS: Vitamin D,25 Hydroxy 63.3 ng/mL
[2022-04-18 12:28] LABS: ALB/GLOB Ratio 1.4 RATIO (0.9-2.4); AST(SGOT) 16 U/L (15-37); Alanine Aminotransfer ALT/SGPT 18 U/L (13-56); Albumin, Serum 3.8 g/dL (3.2-5.0); Alkaline Phosphatase 77 U/L (45-117); Anion Gap 6 (5-15); BUN 15 mg/dL (7-18); BUN/Creat Ratio 14.9 RATIO (10-20); Calcium,Total 9.4 mg/dL (8.5-10.1); Chloride 104 mmol/L (98-107); Creatinine, Serum 1.01 mg/dL (0.55-1.02); EST Glomerular Filtration Rate 55 mL/min (>60); Est Glom Filt Rate - Afr Amer 67 mL/min (>60); Globulin 2.8 g/dL (2.2-4.2); Glucose 93 mg/dL (74-106); Potassium 4.6 mmol/L (3.5-5.1); Protein, Total 6.6 g/dL (6.4-8.2); Sodium Level 140 mmol/L (136-145); Thyroid Stim Hormone (TSH) 1.96 uIU/mL (0.358-3.74)
== END | disposition home or self-care (01) ==
LOC: POLAB3 10:04
PROVIDERS: PCP Family Medicine Geriatric Medicine; Visit Provider Family Medicine Geriatric Medicine
DX: E55.9 Vitamin D deficiency, unspecified (principal); R53.83 Other fatigue
CPT/HCPCS: 36415; 80053; 82306; 84443; 85025

== ENCOUNTER → 2022-10-24 | Outpatient (CLI) | payer MEDICARE, SELFPAY ==
[2022-10-24 13:27] LABS: Absolute Lymphocyte Count 1.69 X10^3/uL (0.83-4.51); Absolute Neutrophil Count 3.4 X10^3/uL (2.0-7.7); Basophil% 1.6 % (0-1); Eosinophil# 0.21 X10^3/uL; Eosinophils% 3.3 % (0-5); Hematocrit 39.1 % (37-47); Hemoglobin 12.2 g/dL (12.0-15.0); Lymphocyte # 1.69 X10^3/ul (0.83-4.51); Lymphocyte % 26.7 % (19-41); Mean Corp Hgb Conc 31.2 g/dL (32-36); Mean Corpuscular Hgb 28.5 pg (27.0-32.0); Mean Corpuscular Volume 91.4 fL (81-99); Mean Platelet Vol. 11.4 fl (6.2-12.0); Monocyte# 0.94 X10^3/uL; Monocyte% 14.8 % (0-10); NRBC Flagged by Analyzer 0 % (0-5); Neutrophil # 3.36 X10^3/uL (2.7-7.7); Platelet Count 235 K/mm3 (150-450); RBC Distribution Width CV 13.5 % (11.6-14.6); RBC Distribution Width SD 45.4 fl (35.1-43.9); Red Blood Count 4.28 M/mm3 (4.2-5.4); White Blood Count 6.3 K/mm3 (4.4-11.0)
[2022-10-24 13:38] LABS: Vitamin D,25 Hydroxy 53.7 ng/mL
[2022-10-24 13:53] LABS: ALB/GLOB Ratio 1.5 RATIO (0.9-2.4); AST(SGOT) 18 U/L (15-37); Alanine Aminotransfer ALT/SGPT 20 U/L (13-56); Albumin, Serum 3.8 g/dL (3.2-5.0); Alkaline Phosphatase 69 U/L (45-117); Anion Gap 7 (5-15); BUN 11 mg/dL (7-18); BUN/Creat Ratio 11.4 RATIO (10-20); Calcium,Total 8.6 mg/dL (8.5-10.1); Chloride 102 mmol/L (98-107); Creatinine, Serum 0.96 mg/dL (0.55-1.02); EST Glomerular Filtration Rate 58 mL/min (>60); Est Glom Filt Rate - Afr Amer 71 mL/min (>60); Globulin 2.5 g/dL (2.2-4.2); Glucose 88 mg/dL (74-106); Potassium 4.4 mmol/L (3.5-5.1); Protein, Total 6.3 g/dL (6.4-8.2); Sodium Level 136 mmol/L (136-145); Thyroid Stim Hormone (TSH) 1.64 uIU/mL (0.358-3.74)
== END | disposition home or self-care (01) ==
LOC: POLAB3 10:30
PROVIDERS: PCP Family Medicine Geriatric Medicine; Visit Provider Family Medicine Geriatric Medicine
DX: E55.9 Vitamin D deficiency, unspecified (principal); R53.83 Other fatigue
CPT/HCPCS: 36415; 80053; 82306; 84443; 85025

== ENCOUNTER → 2023-03-11 | Outpatient (CLI) | payer MEDICARE, SELFPAY ==
--- NOTE | 2023-03-11 12:16 | RAD_ITS ---
STUDY: X-RAY - RIGHT KNEE REASON FOR EXAM: Female, 87 years old. R KN PAIN TECHNIQUE: 3 view(s) of the knee. COMPARISON: None. FINDINGS: Normal visualized distal femur. Normal visualized proximal tibia and fibula. Normal proximal tibiofibular articulation. There is severe degenerative arthrosis of the medial femorotibial compartment with severe joint space narrowing. Normal lateral femorotibial compartment. There is moderate degenerative arthrosis of the patellofemoral articulation. Mild joint effusion. The soft tissue structures are unremarkable. RAD/Knee 3 Views IMPRESSION: Degenerative arthrosis. Tiny joint effusion. Electronically Signed: Tobi Cosme MD at 12:47 EDT ,
[2023-03-11 12:52] LABS: Absolute Lymphocyte Count 1.68 X10^3/uL (0.83-4.51); Absolute Neutrophil Count 3.4 X10^3/uL (2.0-7.7); Basophil# 0.08 X10^3/uL; Basophil% 1.2 % (0-1); Eosinophil# 0.51 X10^3/uL; Eosinophils% 7.9 % (0-5); Hematocrit 40.2 % (37-47); Hemoglobin 12.1 g/dL (12.0-15.0); Lymphocyte # 1.68 X10^3/ul (0.83-4.51); Mean Corp Hgb Conc 30.1 g/dL (32-36); Mean Corpuscular Hgb 28.5 pg (27.0-32.0); Mean Corpuscular Volume 94.8 fL (81-99); Mean Platelet Vol. 11.9 fl (6.2-12.0); Monocyte# 0.79 X10^3/uL; Monocyte% 12.2 % (0-10); NRBC Flagged by Analyzer 0 % (0-5); Neutrophil # 3.37 X10^3/uL (2.7-7.7); Neutrophil % 52.2 % (47-70); Platelet Count 202 K/mm3 (150-450); RBC Distribution Width SD 48.7 fl (35.1-43.9); Red Blood Count 4.24 M/mm3 (4.2-5.4); White Blood Count 6.5 K/mm3 (4.4-11.0)
[2023-03-11 12:54] LABS: Erythrocyte Sedimentation Rate < 1 mm/hr (0-30)
[2023-03-11 13:14] LABS: Anion Gap 4 (5-15); BUN 14 mg/dL (7-18); BUN/Creat Ratio 12.7 RATIO (10-20); CRP < 2.90 mg/L (0.0-3.0); Calcium,Total 9.3 mg/dL (8.5-10.1); Chloride 110 mmol/L (98-107); EST Glomerular Filtration Rate 50 mL/min (>60); Est Glom Filt Rate - Afr Amer 61 mL/min (>60); Glucose 88 mg/dL (74-106); Potassium 4.1 mmol/L (3.5-5.1); Sodium Level 141 mmol/L (136-145); Uric Acid 3.7 mg/dL (2.6-6.0)
== END | disposition home or self-care (01) ==
PROVIDERS: PCP Family Medicine Geriatric Medicine; Referring Provider Family Medicine Geriatric Medicine; Visit Provider Family Medicine Geriatric Medicine
DX: M25.561 Pain in right knee (principal); R53.83 Other fatigue; M1A.9XX1 Chronic gout, unspecified, with tophus (tophi)
CPT/HCPCS: 36415; 73562; 80048; 84550; 85025; 85652; 86140

== ENCOUNTER → 2023-04-24 | Outpatient (CLI) | payer MEDICARE, SELFPAY ==
[2023-04-24 11:14] LABS: Absolute Lymphocyte Count 1.48 X10^3/uL (0.83-4.51); Absolute Neutrophil Count 4.5 X10^3/uL (2.0-7.7); Basophil# 0.09 X10^3/uL; Basophil% 1.2 % (0-1); Eosinophil# 0.56 X10^3/uL; Eosinophils% 7.3 % (0-5); Hemoglobin 12.2 g/dL (12.0-15.0); Lymphocyte # 1.48 X10^3/ul (0.83-4.51); Lymphocyte % 19.2 % (19-41); Mean Corp Hgb Conc 30.5 g/dL (32-36); Mean Corpuscular Hgb 28.9 pg (27.0-32.0); Mean Corpuscular Volume 94.8 fL (81-99); Mean Platelet Vol. 11.6 fl (6.2-12.0); Monocyte# 0.98 X10^3/uL; Monocyte% 12.7 % (0-10); NRBC Flagged by Analyzer 0 % (0-5); Neutrophil % 58.3 % (47-70); Platelet Count 198 K/mm3 (150-450); RBC Distribution Width CV 14.1 % (11.6-14.6); RBC Distribution Width SD 48.4 fl (35.1-43.9); Red Blood Count 4.22 M/mm3 (4.2-5.4); White Blood Count 7.7 K/mm3 (4.4-11.0)
[2023-04-24 11:36] LABS: Vitamin D,25 Hydroxy 70.2 ng/mL
[2023-04-24 11:47] LABS: ALB/GLOB Ratio 1.4 RATIO (0.9-2.4); AST(SGOT) 20 U/L (15-37); Alanine Aminotransfer ALT/SGPT 27 U/L (13-56); Albumin, Serum 3.7 g/dL (3.2-5.0); Alkaline Phosphatase 78 U/L (45-117); Anion Gap 4 (5-15); BUN 20 mg/dL (7-18); BUN/Creat Ratio 16.1 RATIO (10-20); Calcium,Total 9.2 mg/dL (8.5-10.1); Chloride 108 mmol/L (98-107); Creatinine, Serum 1.24 mg/dL (0.55-1.02); EST Glomerular Filtration Rate 44 mL/min (>60); Est Glom Filt Rate - Afr Amer 53 mL/min (>60); Globulin 2.6 g/dL (2.2-4.2); Glucose 94 mg/dL (74-106); Protein, Total 6.3 g/dL (6.4-8.2); Sodium Level 139 mmol/L (136-145); Thyroid Stim Hormone (TSH) 1.78 uIU/mL (0.358-3.74)
== END | disposition home or self-care (01) ==
PROVIDERS: PCP Family Medicine Geriatric Medicine; Visit Provider Family Medicine Geriatric Medicine
DX: R53.83 Other fatigue (principal); E55.9 Vitamin D deficiency, unspecified
CPT/HCPCS: 36415; 80053; 82306; 84443; 85025

== ENCOUNTER → 2023-05-27 | Outpatient (CLI) | payer MEDICARE, SELFPAY ==
--- NOTE | 2023-05-27 11:08 | RAD_ITS ---
STUDY: X-RAY - LUMBAR SPINE REASON FOR EXAM: Female, 87 years old. Low back pain. TECHNIQUE: 6 view(s) of the lumbar spine were obtained. COMPARISON: July 13, 2019. FINDINGS: Osteopenia. Normal lumbar lordosis. Stable moderate rotatory thoracolumbar scoliosis. Normal vertebral alignment. Diffuse lower thoracic and lumbosacral facet sclerosis. Endplate irregularity compatible with osteoporosis. Anterior wedge compression deformities of T12 and L1, slightly progressed since the prior study. Diffuse intervertebral disc space narrowing with small osteophytes, relatively unchanged. Marked vascular calcification. RAD/L/S Spine Min 4 Views IMPRESSION: Stable osteopenia and diffuse lower thoracic and lumbosacral spondylosis. Slight progression of anterior wedge compression deformities of T12 and L1. No acute abnormality or erosive changes. Electronically Signed: Macario Monique MD at 15:30 EDT ,
== END | disposition home or self-care (01) ==
LOC: RAD 11:07
PROVIDERS: PCP Family Medicine Geriatric Medicine; Referring Provider Family Medicine Geriatric Medicine; Visit Provider Family Medicine Geriatric Medicine
DX: M54.50 Low back pain, unspecified (principal)
CPT/HCPCS: 72110

== ENCOUNTER → 2023-07-18 | Outpatient (CLI) | payer MEDICARE, SELFPAY ==
--- NOTE | 2023-07-18 12:11 | MRI_ITS ---
STUDY: MRI LUMBAR SPINE WITHOUT CONTRAST REASON FOR EXAM: Female, 87 years old. COLLAPSED VERTEBRA TECHNIQUE: Standardized fat and water weighted pulse sequences were obtained in the sagittal and axial planes. COMPARISON: Lumbar spine radiographs 05/27/2023. No prior MRI lumbar spine for comparison. FINDINGS: T11-T12: (Sagittal only). Normal T11 inferior endplate. Mild anterior wedging of the upper T12 vertebral body without bony edema is presumably from remote injury. This accounts for the increased disc space height. Mild ventral extradural defect due to mild retropulsion of the posterior superior corner of the T12 vertebral body. Normal central canal and bilateral intervertebral neural foramina. T12-L1: (Sagittal only). Prominent anterior marginal spurs. Normal endplates. Mild right lateral degenerative subluxation of T12 on L1. Prominent ventral extradural defect due to posterior marginal spurs. Normal central canal and bilateral intervertebral neural foramina. Normal lumbar lordosis. Moderate levoscoliosis of the lumbar spine. Normal conus medullaris that terminates at the T12-L1 disc space level. L1-2: Normal endplates. Normal disc height. Mild right lateral degenerative subluxation of L1 on L2. Mild degenerative retrolisthesis of L1 on L2. Mild ventral extradural defect due to posterior bulging annulus and retrolisthesis. Mild to moderate left degenerative facet arthropathy. Mild right degenerative facet arthropathy. Prominent dorsal epidural lipomatosis. Moderate central canal stenosis with an AP canal diameter 7 mm. Normal bilateral lateral recesses. Normal bilateral intervertebral neural foramina. Bilateral renal cysts are visible at this level. L2-3: Normal endplates. Moderate right-sided disc space height narrowing. Mild degenerative retrolisthesis of L2 on L3. Moderate left degenerative facet arthropathy. Mild right degenerative facet arthropathy. Mild dorsal epidural lipomatosis. Moderately pronounced central canal stenosis with an AP canal diameter of 5.3 mm. Normal bilateral lateral recesses. Mild stenosis of the right intervertebral neural foramen. Normal left intervertebral neural foramen. L3-4: Normal endplates. Normal disc height. Mild ventral extradural defect due to posterior bulging annulus. Mild asymmetric degenerative facet arthropathy, left greater than right. Pronounced central canal stenosis with an AP canal diameter of 4 mm. Asymmetric posterior ligamenta flava hypertrophy. Normal bilateral lateral recesses. Normal bilateral intervertebral neural foramina. L4-5: Normal endplates. Normal disc height and hydration. Minimal ventral extradural defect due to tiny posterior bulging annulus. Moderately pronounced left degenerative facet arthropathy. Moderate right degenerative facet arthropathy. Pronounced central canal stenosis with an AP canal diameter of 5 mm. Normal bilateral lateral recesses. Normal bilateral intervertebral neural foramina. L5-S1: Modic type II degenerative vertebral marrow fat infiltration underneath the peripheral aspect of the vertebral endplates. Moderate pronounced disc space height narrowing. Mild left degenerative facet arthropathy. Normal right facet joint. Normal central canal and bilateral lateral recesses. Mild stenosis of the left intervertebral neural foramen. Normal right intervertebral neural foramen. Normal visualized sacral ala. Normal visualized paraspinous soft tissue structures. MRI/Spine Lumbar (Routine) IMPRESSION: 1. Pronounced central canal stenosis at L3-L4 level with an AP canal diameter of 4 mm secondary to developmentally short pedicles, asymmetric posterior ligamenta flava hypertrophy and posterior bulging annulus. 2. Pronounced central canal stenosis at L4-L5 disc space level with an AP canal diameter of 5 mm secondary to developmentally short pedicles and posterior bulging annulus. 3. Moderately pronounced central canal stenosis at L2-L3 disc space level with an AP canal diameter of 5.3 mm secondary to developmentally short pedicles and mild degenerative retrolisthesis of L2 on L3. 4. Moderate central canal stenosis at L1-L2 disc space level with an AP canal diameter of 7 mm secondary to developmentally short pedicles, mild dorsal epidural lipomatosis and mild degenerative retrolisthesis of L1 on L2. 5. Mild old anterior wedge compression fracture of the upper T12 vertebral body. 6. No MRI evidence of lumbar extruded disc fragment. Electronically Signed: Singh Wheeler MD at 15:17 EST ,
--- NOTE | 2023-07-18 12:11 | MRI_ITS ---
EXAM: MR THORACIC SPINE WITHOUT INTRAVENOUS CONTRAST CLINICAL INDICATION: COLLAPSED VERTEBRA TECHNIQUE: Multiplanar and multisequence MR images of the thoracic spine without intravenous contrast. COMPARISON: No relevant prior studies available. FINDINGS: VERTEBRAE: No acute fracture. Marrow signal is normal, with no acute fracture. No subluxation. There is straightening of the normal thoracic kyphosis in the mid thoracic spine. Chronic T12 compression fracture with approximately 40% loss of vertebral body height. Mild loss of height of the L1 vertebra. DISCS/SPINAL CANAL/NEURAL FORAMINA: Normal disc height and morphology. Normal spinal canal and neuroforamina. SPINAL CORD: Unremarkable. Normal in signal and morphology. Normal conus medullaris. SOFT TISSUES: Large stone in the gallbladder. MRI/Spine Thoracic (Routine) IMPRESSION: Chronic T12 compression fracture. No compressive disc disease, canal or foraminal stenosis. Cholelithiasis. Electronically Signed: Citlalli Bush MD at 23:31 EST Reading Location ID and State: [id number] / Tel , Service support ,
== END | disposition home or self-care (01) ==
LOC: MRI 11:58
PROVIDERS: PCP Family Medicine Geriatric Medicine; Referring Provider Anesthesiology; Visit Provider Anesthesiology
DX: M48.50XA Collapsed vertebra, not elsewhere classified, site unspecified, initial encounter for fracture (principal)
CPT/HCPCS: 72146; 72148

== ENCOUNTER → 2023-11-04 | Outpatient (CLI) | payer MEDICARE, SELFPAY ==
[2023-11-04 10:37] LABS: Absolute Neutrophil Count 5.9 X10^3/uL (2.0-7.7); Basophil# 0.16 X10^3/uL; Basophil% 1.4 % (0-1); Eosinophil# 0.19 X10^3/uL; Eosinophils% 1.7 % (0-5); Hematocrit 41.2 % (37-47); Hemoglobin 12.6 g/dL (12.0-15.0); Lymphocyte % 29.9 % (19-41); Mean Corp Hgb Conc 30.6 g/dL (32-36); Mean Corpuscular Hgb 28.8 pg (27.0-32.0); Mean Corpuscular Volume 94.3 fL (81-99); Mean Platelet Vol. 11.6 fl (6.2-12.0); Monocyte# 1.61 X10^3/uL; Monocyte% 14.1 % (0-10); NRBC Flagged by Analyzer 0 % (0-5); Neutrophil # 5.85 X10^3/uL (2.7-7.7); Neutrophil % 51.4 % (47-70); POSITIVE DIFFERENTIAL YES; Platelet Count 346 K/mm3 (150-450); RBC Distribution Width SD 47.9 fl (35.1-43.9); Red Blood Count 4.37 M/mm3 (4.2-5.4); White Blood Count 11.4 K/mm3 (4.4-11.0)
[2023-11-04 10:38] LABS: Differential Indicated SCAN CRITERIA MET
[2023-11-04 10:53] LABS: Vitamin D,25 Hydroxy 87.1 ng/mL
[2023-11-04 11:01] LABS: ALB/GLOB Ratio 1.3 RATIO (0.9-2.4); AST(SGOT) 18 U/L (15-37); Alanine Aminotransfer ALT/SGPT 23 U/L (13-56); Albumin, Serum 3.8 g/dL (3.2-5.0); Alkaline Phosphatase 90 U/L (45-117); Anion Gap 9 (5-15); BUN 21 mg/dL (7-18); BUN/Creat Ratio 16.5 RATIO (10-20); Calcium,Total 9.9 mg/dL (8.5-10.1); Chloride 109 mmol/L (98-107); Creatinine, Serum 1.27 mg/dL (0.55-1.02); EST Glomerular Filtration Rate 42 mL/min (>60); Est Glom Filt Rate - Afr Amer 51 mL/min (>60); Glucose 128 mg/dL (74-106); Potassium 3.8 mmol/L (3.5-5.1); Protein, Total 6.8 g/dL (6.4-8.2); Sodium Level 142 mmol/L (136-145); Thyroid Stim Hormone (TSH) 2.86 uIU/mL (0.358-3.74)
[2023-11-04 13:14] LABS: Pathologist Review Reviewed
== END | disposition home or self-care (01) ==
PROVIDERS: PCP Family Medicine Geriatric Medicine; Visit Provider Family Medicine Geriatric Medicine
DX: R53.83 Other fatigue (principal); E55.9 Vitamin D deficiency, unspecified
CPT/HCPCS: 36415; 80053; 82306; 84443; 85025

== ENCOUNTER → 2023-11-11 | Outpatient (CLI) | payer MEDICARE, SELFPAY ==
[2023-11-11 11:57] LABS: Absolute Lymphocyte Count 2.05 X10^3/uL (0.83-4.51); Absolute Neutrophil Count 3.9 X10^3/uL (2.0-7.7); Basophil# 0.08 X10^3/uL; Basophil% 1.1 % (0-1); Eosinophil# 0.16 X10^3/uL; Eosinophils% 2.2 % (0-5); Hematocrit 42.4 % (37-47); Lymphocyte # 2.05 X10^3/ul (0.83-4.51); Mean Corp Hgb Conc 30.7 g/dL (32-36); Mean Corpuscular Hgb 28.9 pg (27.0-32.0); Mean Corpuscular Volume 94.2 fL (81-99); Mean Platelet Vol. 11.1 fl (6.2-12.0); NRBC Flagged by Analyzer 0 % (0-5); Neutrophil # 3.87 X10^3/uL (2.7-7.7); Neutrophil % 52.7 % (47-70); Platelet Count 176 K/mm3 (150-450); RBC Distribution Width CV 14.5 % (11.6-14.6); RBC Distribution Width SD 50.3 fl (35.1-43.9); White Blood Count 7.3 K/mm3 (4.4-11.0)
[2023-11-11 12:30] LABS: ALB/GLOB Ratio 1.3 RATIO (0.9-2.4); AST(SGOT) 23 U/L (15-37); Alanine Aminotransfer ALT/SGPT 22 U/L (13-56); Albumin, Serum 3.6 g/dL (3.2-5.0); Alkaline Phosphatase 86 U/L (45-117); Anion Gap 6 (5-15); BUN 18 mg/dL (7-18); BUN/Creat Ratio 20.9 RATIO (10-20); Calcium,Total 9.1 mg/dL (8.5-10.1); Chloride 108 mmol/L (98-107); Creatinine, Serum 0.86 mg/dL (0.55-1.02); EST Glomerular Filtration Rate 66 mL/min (>60); Est Glom Filt Rate - Afr Amer 80 mL/min (>60); Globulin 2.8 g/dL (2.2-4.2); Glucose 97 mg/dL (74-106); Potassium 3.6 mmol/L (3.5-5.1); Protein, Total 6.4 g/dL (6.4-8.2); Sodium Level 140 mmol/L (136-145); Thyroid Stim Hormone (TSH) 1.08 uIU/mL (0.358-3.74)
== END | disposition home or self-care (01) ==
LOC: LAB 11:28
PROVIDERS: PCP Family Medicine Geriatric Medicine; Referring Provider Family Medicine Geriatric Medicine; Visit Provider Family Medicine Geriatric Medicine
DX: E78.5 Hyperlipidemia, unspecified (principal); N39.0 Urinary tract infection, site not specified
CPT/HCPCS: 36415; 80053; 84443; 85025

== ENCOUNTER → 2023-11-12 | Outpatient (CLI) | payer MEDICARE, SELFPAY | END | disposition home or self-care (01) | LOC: LAB.FUTURE 06:50 | PROVIDERS: PCP Family Medicine Geriatric Medicine; Visit Provider Family Medicine Geriatric Medicine | DX: E78.5 Hyperlipidemia, unspecified (principal); N39.0 Urinary tract infection, site not specified ==

== ENCOUNTER → 2023-12-02 | Outpatient (CLI) | payer MEDICARE, SELFPAY ==
--- NOTE | 2023-12-02 14:25 | RAD_ITS ---
INDICATION: Pain in right elbow EXAMINATION/TECHNIQUE: X-RAY - RIGHT XR Elbow Min 3 Views COMPARISON: No relevant prior comparison study available FINDINGS: SOFT TISSUES: No soft tissue swelling or gas. No radiopaque foreign body. BONES/JOINTS: There is a deformity of the radial head consistent with a fracture. Normal alignment. There are degenerative changes. No sclerotic or destructive changes observed. RAD/Elbow min 3 Views IMPRESSION: Radial head fracture. Degenerative changes. Electronically Signed: Corrine Zamudio MD at 14:41 EDT ,
== END | disposition home or self-care (01) ==
LOC: RAD 14:22
PROVIDERS: PCP Family Medicine Geriatric Medicine; Referring Provider Family Medicine Geriatric Medicine; Visit Provider Family Medicine Geriatric Medicine
DX: M25.521 Pain in right elbow (principal)
CPT/HCPCS: 73080

== ENCOUNTER 2024-01-27 10:30 | Outpatient (RCR) | payer MEDICARE, SELFPAY ==
--- NOTE | 2023-08-19 13:04 | HP.PTEVAL_ITS ---
Patient's Visit Information Visit Information Visit Information: MAREN PROCTOR is a 87 year old F referred to Physical Therapy by Dr. Toni Steel MD with a diagnosis of Spinal stenosis. Date of Evaluation: 08/19/23 Physical Therapist: Adolfo Hall, PT, ATC Visit Plan Frequency: 2x /Week Duration: 4-6 Weeks Plan: Aquatic therapy consisting of B LE strengthening, core stab ex's, and HEP Subjective Subjective: Pt reports she has had LBP for several years. Pt reports she had x- rays which revealed spinal stenosis. Pt reports she has had epidural injections in her L/S which helped a lot. Now she is here in order to perform some aquatic therapy to strengthen her spine so she is able to ambulate further. Pt also had significant difficulty with sit to stand transfers which she is able to perform now with much greater ease. Pt denies LE radiculopathy at this time. Pt denies sleep difficulty at this time secondary to pain. Pt reports she is able to perform most of her daily activities. Pt also notes she is able to go grocery shopping without significant limitation. LBP is 0/10 while sitting at rest, 7/10 pain at worst (while ambulating or standing for prolonged periods of time.) Pain LBP: Pain Intensity (Out of 10): 0 Pain Intensity Range: 7 Objective Objective: Neuro: B LE sensation is WNL to light touch. B patellar reflex 1/3 MMT: B LE's are grossly 4-/5 throughout. sit to stand transfers: pt was able to perform 10 sit to stand transfers Gait: Pt is able to ambulate 300 feet with CGAx1 until needing to sit secondary to knee pain Balance/Special Test Scores Oswestry Low Back Score: 21 Goals Goal 1:: Increase B LE strength x 1 grade to aid with sit to stand transfers Goal Time Frame: 4-6 Weeks Goal 2:: Pt will be able to perform 15 sit to stand transfers in 30 seconds to aid with I at home Goal Time Frame: 4-6 Weeks Goal 3:: Pt will be able to ambulate greater than 1000 feet to aid with community mobility Goal Time Frame: 4-6 Weeks Goal 4:: I with HEP Rehabilitation Potential Physical Therapy Diagnosis: Pt has LBP, LE weakness, and difficulty with prolonged ambulation secondary to spinal stenosis Rehabilitation Potential: Good Anticipated Interventions Patient/Client Instruction: Educate patient on: Condition and Plan of Care For the Purpose of:: To improve self management Therapeutic Exercise to Include: Strength training, Endurance training, Balance training, Flexibilty training, In an aquatic setting and Dynamic Lumbar Stabilization For the Purpose of:: To decrease pain and To improve muscle performance and motor function Text: Thank you for the opportunity to evaluate your patient. For Medicare and Medicare HMO plans, please review the plan of care and approve it. It will need to be FAXED BACK to us at [phone] for Medicare purposes. For Medicare only, by signing this I certify the plan of care. Please let me know if there are questions or concerns regarding this plan of care. Physician Signature: Date:
--- NOTE | 2023-10-01 14:10 | HP.PTREVAL_ITS ---
Re-Evaluation Intro: Dr. Toni Steel MD, It has been my pleasure to treat MAREN PROCTOR over the last 8 visits for Spinal stenosis. Please see the progress note below for an update on the physical therapy plan of care! Subjective Subjective: I dont have pain right now, just a lot of discomfort. Pain range's from 8-10/10 Objective Objective/Function: MMT: B LE's are grossly 4/5 throughout Gait: Pt is able to ambulate 340 feet until needing to rest secondary to B knee pain Sit to stand: Pt is able to perform 10 reps in 30 seconds Pt was progressing well, but has since regressed. Plan Plan Plan: Need to get into water with patient Aquatic therapy consisting of B LE strengthening, core stab ex's, and HEP Balance/Gait/Functional tests Balance/Special Test Scores Oswestry Low Back Score: 21 Goals Goals Goal 1:: Increase B LE strength x 1 grade to aid with sit to stand transfers Goal Time Frame: 4-6 Weeks Goal Progress: Progressing Goal 2:: Pt will be able to perform 15 sit to stand transfers in 30 seconds to aid with I at home Goal Time Frame: 4-6 Weeks Goal Progress: Progressing Goal 3:: Pt will be able to ambulate greater than 1000 feet to aid with community mobility Goal Time Frame: 4-6 Weeks Goal Progress: Progressing Goal 4:: I with HEP Goal Progress: Goal Met Anticipated Interventions Anticipated Interventions Patient/Client Instruction: Educate patient on: Condition and Plan of Care For the Purpose of:: To improve self management Therapeutic Exercise to Include: Strength training, Endurance training, Balance training, Flexibilty training, In an aquatic setting and Dynamic Lumbar S tabilization For the Purpose of:: To decrease pain and To improve muscle performance and motor function Re-Evaluation Ending Re-evaluation ending: Please do not hesitate to contact me at [phone] by phone or if you have questions or concerns regarding this new plan of care! Sincerely, Adolfo Hall, PT, ATC
--- NOTE | 2023-12-05 15:29 | HP.PTREVAL ---
Re-Evaluation Intro: Dr. Toni Steel MD, It has been my pleasure to treat MAREN PROCTOR over the last 15 visits for Spinal stenosis. Please see the progress note below for an update on the physical therapy plan of care! Subjective Subjective: Pt reports she returns today after an extended illness with brochitis. Pt reports she has had 3 recent falls. Pt reports her back pain is better since having injections Objective Objective/Function: sit to stands 5 times in 30 seconds MMT: hip flex and knee flexion 3+/5, all other measurements 4/5 throughout Gait 510 feet with cane and CGAx1 Pt is progressing well with demonstrating increased strength and increased tolerance for ambulation Plan Plan Plan: Aquatic therapy consisting of B LE strengthening, core stab ex's, and HEP Balance/Gait/Functional tests Balance/Special Test Scores Oswestry Low Back Score: 26 Goals Goals Goal 1:: Increase B LE strength x 1 grade to aid with sit to stand transfers Goal Time Frame: 4-6 Weeks Goal Progress: Progressing Goal 2:: Pt will be able to perform 15 sit to stand transfers in 30 seconds to aid with I at home Goal Time Frame: 4-6 Weeks Goal Progress: Progressing Goal 3:: Pt will be able to ambulate greater than 1000 feet to aid with community mobility Goal Time Frame: 4-6 Weeks Goal Progress: Progressing Goal 4:: I with HEP Goal Progress: Goal Met Anticipated Interventions Anticipated Interventions Patient/Client Instruction: Educate patient on: Condition and Plan of Care For the Purpose of:: To improve self management Therapeutic Exercise to Include: Strength training, Endurance training, Balance training, Flexibilty training, In an aquatic setting and Dynamic Lumbar Stabilization For the Purpose of:: To decrease pain and To improve muscle performance and motor function Re-Evaluation Ending Re-evaluation ending: Please do not hesitate to contact me at [phone] by phone or if you have questions or concerns regarding this new plan of care! Sincerely, Adolfo Hall, PT, ATC
--- NOTE | 2024-01-06 14:44 | HP.PTREVAL_ITS ---
Re-Evaluation Intro: Dr. Toni Steel MD, It has been my pleasure to treat MAREN PROCTOR over the last 22 visits for Spinal stenosis. Please see the progress note below for an update on the physical therapy plan of care! Subjective Subjective: PATIENT REPORTS SHE IS BETTER. SHE REPORTS HER WALKING IS BETTER. SHE STATES SHE CAN WALK WITH LESS DISCOMFORT IN HER LEGS - IT WAS REALLY BAD BEFORE. SHE ALSO REPORTS (WITH THE HELP OF HER DAUGHTER CELI) THAT SHE WAS ABLE TO DO A LOT OF GARDENING THAT SHE WOULDNT'T HAVE BEEN ABLE TO DO BEFORE HAVING THE WATER THERAPY. REPORTS COMPLIANCE WITH NEW HOME EX'S. SHE WENT TO [employer] WITH HER DAUGHTER AND PLAYED 8 HOLES OF MINI GOLF BEFORE NEEDING TO REST - SO HER EDURANCE IS BETTER. NO LONGER USING HER CANE. FOLLOW UP PENDING WITH DR. STEEL January. Other: Not supposed to lift anything heavy with R UE due to fall at home 3 wks ago and possible hairline fracture. Objective Objective/Function: This patient is showing good progress since last re-check in gait, LE strength and on back oswestry. She is also becoming indep/compliant with a hep. sit to stands 8 times in 30 seconds with one UE assist (LUE due to recent fall 3 wks ago and possible R elbow fx). MMT: Antonio LE's 4/5 Gait This patient ambulates at least 500 feet in dept today without AD and without LOB. Steps: patient is able to ascend and descend steps reciprocally with 2 HR's. Plan Plan Plan: Cont Aquatic therapy once a wk x 6 to 8 wks consisting of B LE strengthening, core stab ex's, and written pool ex program for indep pool ex once a week. Patient and daughter agreeable. *Continue to F/U with HEP (No R UE resistance). *Lateral steps *Weight shifting exercises Balance/Gait/Functional tests Balance/Special Test Scores Oswestry Low Back Score: 14 Goals Goals Goal 1:: Increase B LE strength x 1 grade to aid with sit to stand transfers Goal Time Frame: 4-6 Weeks Goal Progress: Progressing Goal 2:: Pt will be able to perform 15 sit to stand transfers in 30 seconds to aid with I at home Goal Time Frame: 4-6 Weeks Goal Progress: Progressing Goal 3:: Pt will be able to ambulate greater than 1000 feet to aid with community mobility Goal Time Frame: 4-6 Weeks Goal Progress: Goal Met Goal 4:: I with HEP Goal Progress: Progressing Goal 5:: New Goal: Indep with Aquatic Ex Program Goal Time Frame: 4-6 Weeks Anticipated Interventions Anticipated Interventions Patient/Client Instruction: Educate patient on: Condition and Plan of Care For the Purpose of:: To improve self management Therapeutic Exercise to Include: Strength training, Endurance training, Balance training, Flexibilty training, In an aquatic setting and Dynamic Lumbar Stabilization For the Purpose of:: To decrease pain and To improve muscle performance and motor function Re-Evaluation Ending Re-evaluation ending: Please do not hesitate to contact me at [phone] by phone or if you have questions or concerns regarding this new plan of care! Sincerely, Dianna Champion, PT, Cert MDT
== END 2024-01-27 19:00 | disposition home or self-care (01) ==
LOC: PT 10:30
PROVIDERS: PCP Family Medicine Geriatric Medicine; Referring Provider Anesthesiology; Visit Provider Anesthesiology
DX: M48.061 Spinal stenosis, lumbar region without neurogenic claudication (principal)
CPT/HCPCS: 97113; 97161; 97164; 97530

== ENCOUNTER → 2024-01-31 | Outpatient (CLI) | payer MEDICARE, SELFPAY ==
--- NOTE | 2024-01-31 11:55 | CT_ITS ---
INDICATION: MEMORY LOSS EXAMINATION: CT BRAIN - CT Head or Brain W/O Contrast Injection TECHNIQUE: Multiple axial images were obtained of the head without intravenous contrast. The protocol utilizes one or more of the following dose reduction techniques: automated exposure control, adjustment of mA and/or kV according to patient size,and/or use of iterative reconstruction technique. IV Contrast dosage and agent: None. RADIATION DOSAGE (If Supplied By Facility): CTDIvol = ( 44.99 ) mGy, DLP = ( 745.49 ) mGycm COMPARISON: No relevant prior comparison study available FINDINGS: BRAIN PARENCHYMA: No intra- or extra-axial hemorrhage. No evidence of acute infarct. No intracranial mass or mass effect. There is preservation of the crocker/white matter interface. Posterior fossa structures are unremarkable. CSF SPACES: Appropriate for age. No hydrocephalus. Basal cisterns are patent. CALVARIUM, SKULL BASE, PARANASAL SINUSES AND MASTOID AIR CELLS: Clear. No discrete lytic or blastic abnormalities. ORBITS: Both globes, extraocular muscles, optic nerves and retrobulbar fat appear unremarkable. ASPECTS Score for Acute Strokes: 10 CT/Brain/Head without Contrast IMPRESSION: No acute intracranial process. Electronically Signed: Corrine Zamudio MD at 12:23 EDT ,
[2024-01-31 12:50] LABS: Absolute Lymphocyte Count 2.21 X10^3/uL (0.83-4.51); Absolute Neutrophil Count 5.4 X10^3/uL (2.0-7.7); Basophil% 1.1 % (0-1); Eosinophil# 0.22 X10^3/uL; Eosinophils% 2.5 % (0-5); Hematocrit 40.1 % (37-47); Hemoglobin 12.5 g/dL (12.0-15.0); Lymphocyte # 2.21 X10^3/ul (0.83-4.51); Mean Corp Hgb Conc 31.2 g/dL (32-36); Mean Corpuscular Hgb 29.3 pg (27.0-32.0); Mean Corpuscular Volume 94.1 fL (81-99); Mean Platelet Vol. 11.6 fl (6.2-12.0); Monocyte# 0.88 X10^3/uL; NRBC Flagged by Analyzer 0 % (0-5); Neutrophil # 5.37 X10^3/uL (2.7-7.7); Neutrophil % 60.8 % (47-70); Platelet Count 204 K/mm3 (150-450); RBC Distribution Width CV 14.4 % (11.6-14.6); RBC Distribution Width SD 49.5 fl (35.1-43.9); Red Blood Count 4.26 M/mm3 (4.2-5.4); White Blood Count 8.8 K/mm3 (4.4-11.0)
[2024-01-31 13:21] LABS: ALB/GLOB Ratio 1.6 RATIO (0.9-2.4); AST(SGOT) 18 U/L (15-37); Alanine Aminotransfer ALT/SGPT 20 U/L (13-56); Albumin, Serum 3.8 g/dL (3.2-5.0); Alkaline Phosphatase 77 U/L (45-117); Anion Gap 6 (5-15); BUN 17 mg/dL (7-18); Calcium,Total 9.8 mg/dL (8.5-10.1); Chloride 110 mmol/L (98-107); Creatinine, Serum 0.81 mg/dL (0.55-1.02); EST Glomerular Filtration Rate 71 mL/min (>60); Est Glom Filt Rate - Afr Amer 86 mL/min (>60); Globulin 2.4 g/dL (2.2-4.2); Glucose 98 mg/dL (74-106); Protein, Total 6.2 g/dL (6.4-8.2); Sodium Level 142 mmol/L (136-145); Thyroid Stim Hormone (TSH) 1.57 uIU/mL (0.358-3.74)
== END | disposition home or self-care (01) ==
LOC: CT 11:53
PROVIDERS: PCP Family Medicine Geriatric Medicine; Referring Provider Family Medicine Geriatric Medicine; Visit Provider Family Medicine Geriatric Medicine
DX: I10 Essential (primary) hypertension (principal); N39.0 Urinary tract infection, site not specified
CPT/HCPCS: 36415; 70450; 80053; 84443; 85025; 87086

== ENCOUNTER 2024-02-03 09:37 | Outpatient (CLI) | payer MEDICARE, SELFPAY ==
[2024-02-03 09:44] VITALS: BP 134/65; PULSE 116; RESP 16; TEMP 36.1; O2SAT 92; BMI 16.9
[2024-02-03] MEDS: 0.9% NaCl Peripheral Flush Adult/Peds IV (09:50)
[2024-02-03] MEDS: 0.9% Normal Saline (1000mL) 1,000 ML 999 ML IV ×2 (09:55→11:10)
[2024-02-03 12:27] VITALS: BP 116/78; PULSE 122; RESP 16; O2SAT 97
== END 2024-02-03 23:59 | disposition home or self-care (01) ==
LOC: MEDOUTP 09:38
PROVIDERS: PCP Family Medicine Geriatric Medicine; Referring Provider Family Medicine Geriatric Medicine; Visit Provider Family Medicine Geriatric Medicine
DX: E86.0 Dehydration (principal)
CPT/HCPCS: 96360; 96361; J7030; A4216

== ENCOUNTER 2024-02-04 11:55 | Observation (INO) | payer MEDICARE, SELFPAY ==
[2024-02-04] VITALS (10 sets, daily range): BP systolic 128–144; BP diastolic 72–107; PULSE 97–126; RESP 18–25; TEMP 36.1–36.7; O2SAT 94–100
--- NOTE | 2024-02-04 12:01 | NURSING ---
NO OLD EKGS
--- NOTE | 2024-02-04 12:24 | CT_ITS ---
STUDY: CT BRAIN WITHOUT CONTRAST REASON FOR EXAM: Female, 88 years old. Severe headache RADIATION DOSAGE (If Supplied By Facility): CTDIvol = ( 44.99 ) mGy, DLP = ( 745.49 ) mGycm TECHNIQUE: Transaxial CT imaging of the brain was performed without administration of intravenous contrast material. Individualized dose optimization techniques were used for this CT. COMPARISON: 01/31/2024 FINDINGS: Normal soft tissue structures. Normal calvarium. There is mild cerebral atrophy with widening of the extra-axial spaces and ventricular dilatation. There are areas of decreased attenuation within the white matter tracts of the supratentorial brain, consistent with microvascular disease changes. Normal basal ganglia and thalami. Normal brainstem. There is mild cerebellar atrophy. There is no intracranial hemorrhage. There are no findings of an acute ischemic infarction. Normal visualized paranasal sinuses. No interval change CT/Brain/Head without Contrast IMPRESSION: Chronic involutional changes of the brain, no acute hemorrhage or significant interval change. Electronically Signed: Cricket Baum MD at 13:28 EDT ,
--- NOTE | 2024-02-04 12:24 | EKG12_ITS ---
Test Reason : PALPS Blood Pressure : / mmHG Vent. Rate : 120 BPM Atrial Rate : 240 BPM P-R Int : 000 ms QRS Dur : 074 ms QT Int : 304 ms P-R-T Axes : 200 005 265 degrees QTc Int : 429 ms Atrial flutter with 2:1 A-V conduction Left ventricular hypertrophy with repolarization abnormality ( R in aVL ) Abnormal ECG Confirmed by Bashir Chatman ([id number]), editor farm journal IVAN VELASCO ([id number]) on 02/07/2024 9:14:22 AM Referred By: BENJI/GINA Confirmed By:Bashir Chatman
--- NOTE | 2024-02-04 12:24 | RAD_ITS ---
STUDY: X-RAY CHEST REASON FOR EXAM: Female, 88 years old. Hypertension. TECHNIQUE: Single frontal view of the chest. COMPARISON: None. FINDINGS: Low volume inspiration with diffuse interstitial prominence. There is no demonstrated pleural abnormality. Cardiomegaly. Normal mediastinum and cristina. Normal visualized pulmonary arteries. Aortic tortuosity with calcification. Thoracic dextroscoliosis and moderate arthrosis of both glenohumeral joints. No abnormality of the visualized soft tissue structures of the upper abdomen. RAD/Chest 1 View (Portable) IMPRESSION: Low volume inspiration with cardiomegaly and no acute or active cardiopulmonary disease. Electronically Signed: Macario Monique MD at 13:02 EDT ,
[2024-02-04 12:45] LABS: Absolute Lymphocyte Count 1.68 X10^3/uL (0.83-4.51); Absolute Neutrophil Count 6.2 X10^3/uL (2.0-7.7); Basophil# 0.09 X10^3/uL; Eosinophil# 0.24 X10^3/uL; Eosinophils% 2.5 % (0-5); Hematocrit 37.3 % (37-47); Hemoglobin 11.2 g/dL (12.0-15.0); Lymphocyte # 1.68 X10^3/ul (0.83-4.51); Lymphocyte % 17.8 % (19-41); Mean Corpuscular Hgb 28.5 pg (27.0-32.0); Mean Corpuscular Volume 94.9 fL (81-99); Mean Platelet Vol. 11.4 fl (6.2-12.0); Monocyte# 1.17 X10^3/uL; Monocyte% 12.4 % (0-10); NRBC Flagged by Analyzer 0 % (0-5); Neutrophil # 6.18 X10^3/uL (2.7-7.7); Neutrophil % 65.5 % (47-70); Platelet Count 190 K/mm3 (150-450); RBC Distribution Width CV 14.4 % (11.6-14.6); RBC Distribution Width SD 50.2 fl (35.1-43.9); Red Blood Count 3.93 M/mm3 (4.2-5.4); White Blood Count 9.4 K/mm3 (4.4-11.0)
[2024-02-04 13:03] LABS: ALB/GLOB Ratio 1.3 RATIO (0.9-2.4); AST(SGOT) 17 U/L (15-37); Alanine Aminotransfer ALT/SGPT 21 U/L (13-56); Albumin, Serum 3.4 g/dL (3.2-5.0); Alkaline Phosphatase 69 U/L (45-117); Anion Gap 4 (5-15); BUN 22 mg/dL (7-18); BUN/Creat Ratio 30.6 RATIO (10-20); Chloride 112 mmol/L (98-107); Creatinine, Serum 0.72 mg/dL (0.55-1.02); EST Glomerular Filtration Rate 82 mL/min (>60); Est Glom Filt Rate - Afr Amer 99 mL/min (>60); Globulin 2.7 g/dL (2.2-4.2); Glucose 96 mg/dL (74-106); Magnesium 2.3 mg/dL (1.6-2.6); Potassium 4.3 mmol/L (3.5-5.1); Protein, Total 6.1 g/dL (6.4-8.2); Sodium Level 143 mmol/L (136-145); Troponin-I HS 28 pg/mL (3.0-54.0)
[2024-02-04] MEDS: Adenosine 6 MG/2 ML Syringe IV (13:10)
[2024-02-04 13:46] LABS: Prothrombin Time (Protime)PT. 13.4 SECONDS (11.7-14.9)
[2024-02-04 13:47] LABS: Partial Thromboplast Time 26.9 Seconds (24.1-36.2)
[2024-02-04] MEDS: dilTIAZem 25 MG/5 ML Vial 10 MG IV BOLUS (13:58)
[2024-02-04] MEDS: dilTIAZem 60 MG Tablet PO ×2 (14:24→20:11)
--- NOTE | 2024-02-04 14:25 | HP.PCM.HOS_ITS ---
HPI - General General Date of Admission: 02/04/24 Date of Service: 02/04/24 Chief Complaint: Elevated heart rate HPI Narrative MAREN PROCTOR, is a 88 F with history of chronic back pain and mood disorder NOS who presented to [facility] ED 02/04/2024 from the cardiology office for a flutter. In the ED patient was noted to have a heart rate of 120 and EKG suggestive of flutter, patient's pocket operator was contacted who reported they wanted patient to receive IV Cardizem followed by Cardizem 60 p.o. every 6 hours and a full dose aspirin as well as an echo. Hospitalist contacted for admission. Patient reports about 1 to 2 weeks ago she was supposed to get an injection with pain management but they noted elevated heart rate and sent her to her PCP, her PCP also noted the heart rate of 120s and sent her to cardiology who sent her to the ED today. Patient denies any shortness of breath or chest pain, only reports some chronic weakness in her legs. Has had a fall 2 days ago and has a black eye on the right side and contusion on her forearm. Per ED report daughter had some concerns that patient may be developing dementia but no family at bedside at time my exam. Patient denied any other specific complaint. [facility] Medical History Alcohol use Chest pain Vitamin D deficiency Osteoarthritis of right knee Low back pain Lumbar disc disease GERD (gastroesophageal reflux disease) Sedative hypnotic or anxiolytic dependence Dyslipidemia Encephalopathy Right elbow pain Hypertension Recent weight loss Insomnia Anxiety Dehydration Depression Sinus tachycardia Memory impairment Segmental and somatic dysfunction of lumbar region Diarrhea Contact with or suspected exposure to other viral communicable disease Radial head fracture, closed Degenerative joint disease of elbow, right Home Medications ?Medication ?Instructions ?Recorded ?Last Taken ?Type cholecalciferol (vitamin D3) 25 25 mcg PO QDAY 02/03/24 Unknown History mcg (1,000 unit) tablet duloxetine 30 mg capsule,delayed 30 mg PO BID 02/03/24 Unknown History release gabapentin 600 mg tablet 600 mg PO QHS 02/03/24 Unknown History lamotrigine 25 mg tablet 25 mg PO BID #180 tabs 02/03/24 Unknown History mirtazapine 7.5 mg tablet 7.5 mg PO QHS 02/03/24 Unknown History tfrxeenh-fzni-tqmj 8 mg-folic 400 1 tab PO DAILY 02/03/24 Unknown History mcg-K 50 mcg-lutein 300 mcg tablet (Centrum Silver Women) vit C 250 mg-vit E 90 mg-zinc 40 1 tab PO BID 02/03/24 Unknown History mg-copper 1 [id number] capsule (PreserVision AREDS-2) acetaminophen 650 mg 1,300 mg PO Q8H PRN pain 02/04/24 Unknown History tablet,extended release (8 Hour Pain Reliever) calcium carbonate 500 mg PO DAILY 02/04/24 Unknown History clonazepam 0.5 mg tablet 0.25 mg PO BID 02/04/24 Unknown History ibuprofen 200 mg tablet (Advil) 400 mg PO BID PRN pain 02/04/24 Unknown History Allergy/AdvReac Type Severity Reaction Status Date / Time Penicillins AdvReac hives Verified 02/04/24 11:56 Family History Father Alcohol abuse Mother Hypotension Enlarged heart Surgical History H/O breast surgery Social History household members: none Smoking Status: Former smoker how long ago did patient quit smokin years ago alcohol intake: never substance use type: does not use caffeine: Yes Type: coffee Number of servings: 1 ROS ROS Narrative General: Denies fever/chills HENT: Denies headache, denies stuffy nose, denies sore throat EYES: Denies changes in vision Resp: Denies cough, denies shortness of breath Cardiac: Denies chest pain GI: Denies abdominal pain, denies changes in bowel, denies nausea/vomiting : Denies changes in urination Extremity: Denies swelling MSK: Some chronic lower extremity weakness Neuro: Denies any numbness/tingling Heme: Denies any bleeding or bruising Skin: Black eye and right forearm contusion Psychiatric: No complaints voiced Vital Signs Vital Signs Vital Signs: 02/04/24 11:55 02/04/24 12:41 02/04/24 12:41 Temperature 97 F L Temperature Source Temporal Pulse Rate 118 H 121 H Respiratory Rate 18 Respiratory Effort Normal Non-Labored Blood Pressure 128/89 H Blood Pressure Mean 102 Pulse Ox 97 Oxygen Delivery Method Room Air 02/04/24 13:00 02/04/24 13:15 02/04/24 13:30 Temperature Temperature Source Pulse Rate 119 H 120 H 120 H Respiratory Rate 25 H 21 H 22 H Respiratory Effort Blood Pressure 134/90 H 144/81 H 134/107 H Blood Pressure Mean 103 100 115 Pulse Ox 94 97 100 Oxygen Delivery Method Physical Exam Narrative General: Alert, oriented, no apparent distress HEENT: Atraumatic, normocephalic Eyes: Anicteric, normal conjunctiva, extraocular movements grossly intact Neck: Supple Respiratory: Clear to auscultation bilaterally, normal respiratory effort Cardiovascular: Heart rate 120s GI: Soft, nontender, nondistended Extremities: No edema Musculoskeletal: Moving all extremities Neuro: No overt focal neurological deficits Skin: Covered lesion on right forearm, right black eye Psych: Cooperative Results Lab / Micro Data 02/04/24 12:40 02/04/24 12:40 Labs: Laboratory Results - last 24 hr 02/04/24 12:40: WBC 9.4, RBC 3.93 L, Hgb 11.2 L, Hct 37.3, MCV 94.9, MCH 28.5, M CHC 30.0 L, RDW Std Deviation 50.2 H, RDW Coeff of Dot 14.4, Plt Count 190, MPV 11.4, Immature Gran % (Auto) 0.800, Neut % (Auto) 65.5, Lymph % (Auto) 17.8 L, M samia % (Auto) 12.4 H, Eos % (Auto) 2.5, Baso % (Auto) 1.0, Absolute Neuts (auto) 6.2, Absolute Lymphs (auto) 1.68, Nucleated RBC % 0, PT 13.4, INR 1.0, APTT 26.9, Sodium 143, Potassium 4.3, Chloride 112 H, Carbon Dioxide 27.0, Anion Gap 4 L, BUN 22 H, Creatinine 0.72, Est GFR (MDRD) Af Amer 99, Est GFR (MDRD) Non-Af 82, BUN/Creatinine Ratio 30.6 H, Glucose 96, Calcium 9.0, Magnesium 2.3, Total Bilirubin 0.30, AST 17, ALT 21, Alkaline Phosphatase 69, Troponin I High Sens 28, Total Protein 6.1 L, Albumin 3.4, Globulin 2.7, Albumin/Globulin Ratio 1.3 Imaging Radiology Impression Brain CT 02/04/24 12:24 IMPRESSION: Chronic involutional changes of the brain, no acute hemorrhage or significant interval change. Electronically Signed: Cricket Baum MD at 13:28 EDT , Chest X-Ray 02/04/24 12:24 IMPRESSION: Low volume inspiration with cardiomegaly and no acute or active cardiopulmonary disease. Electronically Signed: Macario Monique MD at 13:02 EDT , Assessment & Plan Assessment/Plan (1) Atrial flutter: (2) History of falling: PLAN: Plan #Aflutter 2:1 -Pt with elevated heart rate for 1-2 weeks -Seen in cardiology office today and pt sent to ED -ED contacted pts pocket operator who requested IV cardizem followed by oral cardizem 60 q6hrs and full dose aspirin as well as echo -Given her falls it was not advised to begin full dose AC at this time -If rate controlled tomorrow may be able to d/c -TSH recently acquired WNL #Falls -Appears pt was recently started on klonopin -Will give dose prn but would benefit from finding alterative outpt if memory and falls are a concern #Mood d/o NOS -Pt on multiple mood managing medications -Klonopin prn -Continue other home meds -Schedule melatonin #DVT ppx: Lovenox sub q Tiffany Grossman MD Time spent in the patient's overall evaluation,decision-making process, review of diagnostic data, adjustment of management, discussion with other providers, nursing nursing and ancillary staff involved in patient's care documentation, 42 Minutes Charges/Coding Visit Charges Inpatient E&M: 70982 Init Hosp L1
--- NOTE | 2024-02-04 14:32 | EX.ED.DYSGE1 ---
HPI History of Present Illness Chief Complaint: Palpitations Informant: patient Narrative Narrative: 88-year-old female presenting to the emergency room with dysrhythmia. Patient states for the past 2 weeks she has had a heart rate of around 120. This was found incidentally and the patient saw her primary care doctor who referred her to cardiology. There is basic blood work that was done including a TSH that was essentially negative. She saw cardiology today felt that she was probably in atrial flutter and sent her to the emergency department. Recommendation was to give adenosine to confirm atrial flutter or to see underlying rhythm. Patient has had a couple recent falls the most recent was Saturday night which left her with a right periorbital contusion. No loss of consciousness. This occurred while in the bathroom. She notes various contusions on the right arm. Daughter notes that the patient's at the end of last year. She has had some possible early signs of dementia including confusion in the following months. She has not had any known heart disorders in the past. She does carry a diagnosis of hypertension in the past. The only medication change per family is that she started Cymbalta a couple months ago. [facility] Medical History Alcohol use Chest pain Vitamin D deficiency Osteoarthritis of right knee Low back pain Lumbar disc disease GERD (gastroesophageal reflux disease) Sedative hypnotic or anxiolytic dependence Dyslipidemia Encephalopathy Right elbow pain Hypertension Recent weight loss Insomnia Anxiety Dehydration Depression Sinus tachycardia Memory impairment Segmental and somatic dysfunction of lumbar region Diarrhea Contact with or suspected exposure to other viral communicable disease Radial head fracture, closed Degenerative joint disease of elbow, right Home Medications ?Medication ?Instructions ?Recorded ?Last Taken ?Type cholecalciferol (vitamin D3) 25 25 mcg PO QDAY 02/03/24 Unknown History mcg (1,000 unit) tablet duloxetine 30 mg capsule,delayed 30 mg PO BID 02/03/24 Unknown History release gabapentin 600 mg tablet 600 mg PO QHS 02/03/24 Unknown History lamotrigine 25 mg tablet 25 mg PO BID #180 tabs 02/03/24 Unknown History mirtazapine 7.5 mg tablet 7.5 mg PO QHS 02/03/24 Unknown History vvzhbqll-czks-ayne 8 mg-folic 400 1 tab PO DAILY 02/03/24 Unknown History mcg-K 50 mcg-lutein 300 mcg tablet (Centrum Silver Women) vit C 250 mg-vit E 90 mg-zinc 40 1 tab PO BID 02/03/24 Unknown History mg-copper 1 [id number] capsule (PreserVision AREDS-2) acetaminophen 650 mg 1,300 mg PO Q8H PRN pain 02/04/24 Unknown History tablet,extended release (8 Hour Pain Reliever) calcium carbonate 500 mg PO DAILY 02/04/24 Unknown History clonazepam 0.5 mg tablet 0.25 mg PO BID 02/04/24 Unknown History ibuprofen 200 mg tablet (Advil) 400 mg PO BID PRN pain 02/04/24 Unknown History Allergy/AdvReac Type Severity Reaction Status Date / Time Penicillins AdvReac hives Verified 02/04/24 11:56 Family History Father Alcohol abuse Mother Hypotension Enlarged heart Surgical History H/O breast surgery Social History household members: none Smoking Status: Former smoker how long ago did patient quit smokin years ago alcohol intake: never substance use type: does not use caffeine: Yes Type: coffee Number of servings: 1 ROS ROS ED Constitutional Constitutional ED: Denies chills, fever(s) or weight loss Eyes Eyes: Reports other Details: Periorbital contusion ; Denies blurry vision, change in vision or diplopia ENT ENT ED: Denies ear pain, rhinorrhea or sore throat Cardiovascular Cardiovascular: Reports racing heartbeat; Denies chest pain, orthopnea or palpitations Respiratory/Chest Respiratory/Chest: Denies cough, dyspnea or orthopnea Gastrointestinal Gastrointestinal: Denies abdominal pain, diarrhea, nausea or vomiting Genitourinary Genitourinary ED: Denies dysuria, hematuria or urinary frequency Musculoskeletal Musculoskeletal: Denies arthralgias, back pain, myalgias or neck pain Integumentary Denies abscess or rash Neurologic Neurologic: Denies headache(s) or weakness Psychiatric Psychiatric: Denies anxiety, depression, suicidal ideation or suicidal thoughts Endocrine Endocrinology: Denies polydipsia, polyphagia or polyuria Allergic/Immunologic Allergic/Immunologic ED: Denies mouth swelling, tongue swelling or urticaria EXAM Physical Exam Const Vital Signs: 02/04/24 11:55 02/04/24 12:41 02/04/24 12:41 Temperature 97 F L Temperature Source Temporal Pulse Rate 118 H 121 H Respiratory Rate 18 Respiratory Effort Normal Non-Labored Blood Pressure 128/89 H Blood Pressure Mean 102 Pulse Ox 97 Oxygen Delivery Method Room Air 02/04/24 13:00 02/04/24 13:15 02/04/24 13:30 Temperature Temperature Source Pulse Rate 119 H 120 H 120 H Respiratory Rate 25 H 21 H 22 H Respiratory Effort Blood Pressure 134/90 H 144/81 H 134/107 H Blood Pressure Mean 103 100 115 Pulse Ox 94 97 100 Oxygen Delivery Method Positive well nourished and well developed General Appearance ED: well developed HEENT Reports normocephalic, TM's clear and moist mucous membranes HEENT Narrative: There is right periorbital contusion. No hyphema. No palpable step-offs. No septal hematoma. There is no subconjunctival hemorrhage. Tympanic Membrane ED: Yes TM's clear Eyes PERRL and EOMs intact bilaterally Neck no lymphadenopathy, supple and no JVD Resp normal respiratory effort and clear to auscultation bilaterally Cardio regular rate, regular rhythm and no murmurs Rate: tachycardic GI normal to inspection, nondistended, normoactive bowel sounds and non-tender Palpation: soft Back/Spine no CVA tenderness and normal ROM Extremity normal to inspection General Extremety ED: Negative for edema General Extremity: Negative for edema Neuro oriented x3 and CN's II-XII intact bilaterally Sensorium / Orientation: alert Motor Exam: strength 5/5 throughout Psych mental status grossly normal Mood & Affect: Negative for depressed or tearful Skin no rashes or lesions noted and no wounds MDM MDM MDM Narrative Medical decision making narrative: Differential diagnosis includes atrial fibrillation and atrial flutter sinus tachycardia electrolyte disturbance. Anemia cardiomyopathy intracranial hemorrhage skull fracture CT the brain demonstrated no acute findings. Miniprin interpretation of the chest x-ray is no acute process. EKG shows probable atrial flutter with 2 1 conduction. Patient received a 6 mg dose of adenosine which definitively showed flutter waves on the rhythm strip. Hemoglobin 11.2 white count 9.4 platelet count of 190. Basic blood work otherwise showed a glucose of 96 normal potassium and magnesium. Sodium normal troponin is normal. I spoke with the patient's derrickman helper Dr. Frausto. Recommendation is for Cardizem 60 mg every 6 hours and able to convert to long-acting if able. Due to the patient's fall risk is felt that full-strength aspirin would be utilized as compared to full anticoagulation. Plan is admission and obtain echocardiogram and continued rate control History & Record Review Discussion w/independent historian: Patient and Family Additional record(s) reviewed:: Prior outpatient record and Prior labs Lab Data Attestation: I reviewed the patient's lab results. Labs: Laboratory Results - last 24 hr 02/04/24 12:40 WBC 9.4 RBC 3.93 L Hgb 11.2 L Hct 37.3 MCV 94.9 MCH 28.5 MCHC 30.0 L RDW Std Deviation 50.2 H RDW Coeff of Dot 14.4 Plt Count 190 MPV 11.4 Immature Gran % (Auto) 0.800 Neut % (Auto) 65.5 Lymph % (Auto) 17.8 L [place] % (Auto) 12.4 H Eos % (Auto) 2.5 Baso % (Auto) 1.0 Absolute Neuts (auto) 6.2 Absolute Lymphs (auto) 1.68 Nucleated RBC % 0 PT 13.4 INR 1.0 APTT 26.9 Sodium 143 Potassium 4.3 Chloride 112 H Carbon Dioxide 27.0 Anion Gap 4 L BUN 22 H Creatinine 0.72 Est GFR (MDRD) Af Amer 99 Est GFR (MDRD) Non-Af 82 BUN/Creatinine Ratio 30.6 H Glucose 96 Calcium 9.0 Magnesium 2.3 Total Bilirubin 0.30 AST 17 ALT 21 Alkaline Phosphatase 69 Troponin I High Sens 28 Total Protein 6.1 L Albumin 3.4 Globulin 2.7 Albumin/Globulin Ratio 1.3 Radiography Diagnostic Testing: Clinical Impression(s) from Imaging Studies Brain CT 02/04/24 12:24 IMPRESSION: Chronic involutional changes of the brain, no acute hemorrhage or significant interval change. Electronically Signed: Cricket Baum MD at 13:28 EDT , Chest X-Ray 02/04/24 12:24 IMPRESSION: Low volume inspiration with cardiomegaly and no acute or active cardiopulmonary disease. Electronically Signed: Macario Monique MD at 13:02 EDT Reading Location ID and State: [facility] / [place] , Service support , EKG Initial EKG: Attestation: I personally reviewed and interpreted this EKG as follows: Comments: Atrial flutter ventricular rate of 120 bpm Management Discussion w/another healthcare provider: Hospitalist (Dr Grossman) and Floor Installer (Dr Frausto) Discharge Plan Triage Chief Complaint: Palpitations ED Provider: Leo Alves Dx/Rx/DC Orders Prescriptions: No Action lamotrigine 25 mg tablet 25 mg PO BID Qty: 180 gabapentin 600 mg tablet 600 mg PO QHS duloxetine 30 mg capsule,delayed release(DR/EC) 30 mg PO BID cholecalciferol (vitamin D3) 25 mcg (1,000 unit) tablet 25 mcg PO QDAY PreserVision AREDS-2 250-90-40-1 mg capsule 1 tab PO BID Centrum Silver Women 8 mg iron-400 mcg-50 mcg tablet 1 tab PO DAILY mirtazapine 7.5 mg tablet 7.5 mg PO QHS clonazepam 0.5 mg tablet 0.25 mg PO BID calcium carbonate 500 mg calcium (1,250 mg) tablet,chewable 500 mg PO DAILY ibuprofen [Advil] 200 mg tablet 400 mg PO BID PRN (Reason: pain) acetaminophen [8 Hour Pain Reliever] 650 mg tablet extended release 1,300 mg PO Q8H PRN (Reason: pain) Primary Care Provider: Magdy Lino Chi Referrals: Magdy Lino Chi, MD [Primary Care Provider] - Print Language: Icelandic
--- NOTE | 2024-02-04 14:45 | NURSING ---
PCU OBS [facility]ARRIS ATRIAL FLUTTER W RVR
--- NOTE | 2024-02-04 15:16 | ECHOD_ITS ---
Reason For Study: Afib/Flutter Procedure This was a 2D Doppler, Color Flow transthoracic echocardiogram. Exam performed portable in patient room. Left Ventricle Normal LV size. The left ventricular ejection fraction is 40 %. There is mild global hypokinesis of the left ventricle. Right Ventricle Normal RV size. Normal systolic function. Atria Normal left atrium. Normal right atrium. Mitral Valve There is moderate mitral annular calcification. Moderate (2+) eccentric mitral valve insufficiency. Tricuspid Valve Normal tricuspid valve. Mild (1+) tricuspid valve insufficiency. Pulmonary artery systolic pressure is 40 mmHg. Aortic Valve Trisinus/trileaflet aortic valve. Pulmonic Valve Normal pulmonic valve. Great Vessels Normal aortic root. The pulmonary artery is normal size. Inferior vena cava collapse with respiration. Pericardium/Pleural No pericardial effusion. MMode/2D Measurements & Calculations LVIDd: 4.4 cm IVSd: 1.1 cm LA dimension: 4.9 cm LVIDs: 3.7 cm LVPWd: 1.1 cm RVDd: 2.4 cm FS: 16.2 % LAV(MOD-bp): 67.0 ml LVAd ap4: 22.3 cm2 SV(MOD-sp4): 24.2 ml LAV(MOD-bp) Indexed: 44.5 ml/m2 LVLd ap4: 6.9 cm LAV(MOD-sp2): 67.3 ml EDV(MOD-sp4): 60.4 ml LAV(MOD-sp4): 62.0 ml EDV(sp4-el): 60.7 ml LVAs ap4: 16.3 cm2 LVLs ap4: 6.2 cm ESV(MOD-sp4): 36.2 ml ESV(sp4-el): 36.5 ml EF(MOD-sp4): 40.0 % EF(sp4-el): 40.0 % SV(sp4-el): 24.3 ml LA A4 area: 21.4 cm2 RA A4 area: 13.8 cm2 Doppler Measurements & Calculations MV E max sirena: 78.3 cm/sec MV V2 max: 83.9 cm/sec Ao V2 max: 100.6 cm/sec MV max P.9 mmHg Ao max P.1 mmHg MV V2 mean: 59.0 cm/sec MV mean P.6 mmHg MV V2 VTI: 13.3 cm LV V1 max: 77.2 cm/sec MR max sirena: 564.1 cm/sec PA V2 max: 78.6 cm/sec LV V1 max P.4 mmHg MR max P.3 mmHg MR mean sirena: 442.4 cm/sec MR mean P.8 mmHg MR VTI: 155.2 cm TR max sirena: 297.4 cm/sec TR max P.4 mmHg ECHO/Echo Complete Interpretation Summary The left ventricular ejection fraction is 40 %. Moderate (2+) eccentric mitral valve insufficiency. Pulmonary artery systolic pressure is 40 mmHg. Ordering Physician: Tiffany Grossman Performed By: Santiago Padilla RCS
[2024-02-04] MEDS: Aspirin 325 MG Tablet PO (18:18)
[2024-02-04] MEDS: Pantoprazole Sodium 40 MG Tablet PO (18:18)
[2024-02-04] MEDS: Acetaminophen 325 MG Tablet 650 MG PO (18:18)
[2024-02-04] MEDS: MELATONIN 10 MG TABLET PO (22:04)
[2024-02-04] MEDS: Mirtazapine 15 MG Tablet 7.5 MG PO (22:04)
[2024-02-04] MEDS: lamoTRIgine 25 MG Tablet PO (22:04)
[2024-02-04] MEDS: DULoxetine Hcl 30 MG Capsule PO (22:04)
[2024-02-04] MEDS: 0.9% Saline Lock 10 ML Syringe IV (23:05)
[2024-02-04] MEDS: Digoxin 250 MCG/ML Ampul IV (23:05)
[2024-02-05] VITALS (10 sets, daily range): BP systolic 105–147; BP diastolic 50–75; PULSE 78–125; RESP 16–18; TEMP 36.3–37.4; O2SAT 94–98
[2024-02-05] MEDS: dilTIAZem 60 MG Tablet PO ×4 (00:49→17:51)
[2024-02-05] MEDS: Digoxin 250 MCG/ML Ampul IV (04:54)
[2024-02-05] MEDS: Acetaminophen 325 MG Tablet 650 MG PO (04:55)
[2024-02-05] MEDS: 0.9% Saline Lock 10 ML Syringe IV ×2 (05:05→22:05)
[2024-02-05 07:30] LABS: International Normalized Ratio 1.1
[2024-02-05 07:31] LABS: Absolute Lymphocyte Count 1.32 X10^3/uL (0.83-4.51); Absolute Neutrophil Count 8.9 X10^3/uL (2.0-7.7); Basophil# 0.08 X10^3/uL; Basophil% 0.7 % (0-1); Eosinophil# 0.11 X10^3/uL; Eosinophils% 0.9 % (0-5); Hematocrit 34.3 % (37-47); Hemoglobin 10.7 g/dL (12.0-15.0); Lymphocyte # 1.32 X10^3/ul (0.83-4.51); Lymphocyte % 11.2 % (19-41); Mean Corp Hgb Conc 31.2 g/dL (32-36); Mean Corpuscular Hgb 29.1 pg (27.0-32.0); Mean Corpuscular Volume 93.2 fL (81-99); Mean Platelet Vol. 11.8 fl (6.2-12.0); Monocyte# 1.25 X10^3/uL; Monocyte% 10.6 % (0-10); NRBC Flagged by Analyzer 0 % (0-5); Neutrophil % 75.9 % (47-70); Platelet Count 196 K/mm3 (150-450); RBC Distribution Width CV 14.5 % (11.6-14.6); RBC Distribution Width SD 49.1 fl (35.1-43.9); Red Blood Count 3.68 M/mm3 (4.2-5.4); White Blood Count 11.7 K/mm3 (4.4-11.0)
[2024-02-05 07:53] LABS: ALB/GLOB Ratio 1.2 RATIO (0.9-2.4); AST(SGOT) 18 U/L (15-37); Alanine Aminotransfer ALT/SGPT 19 U/L (13-56); Alkaline Phosphatase 69 U/L (45-117); Anion Gap 5 (5-15); BUN 15 mg/dL (7-18); BUN/Creat Ratio 23.3 RATIO (10-20); Calcium,Total 9.1 mg/dL (8.5-10.1); Chloride 110 mmol/L (98-107); Cholesterol 173 mg/dL (200); Creatinine, Serum 0.64 mg/dL (0.55-1.02); EST Glomerular Filtration Rate 93 mL/min (>60); Est Glom Filt Rate - Afr Amer 112 mL/min (>60); Estimated Creatinine Clearance 40.04 ml/min; Globulin 2.4 g/dL (2.2-4.2); Glucose 109 mg/dL (74-106); High Density Lipoprotein 84 mg/dL; Protein, Total 5.4 g/dL (6.4-8.2); Sodium Level 140 mmol/L (136-145); Triglycerides 78 mg/dL; Very Low Density Lipoprotein 16 mg/dL (5-40)
--- NOTE | 2024-02-05 08:15 | EKG12_ITS ---
Test Reason : RHYTHM CHANGE Blood Pressure : / mmHG Vent. Rate : 084 BPM Atrial Rate : 241 BPM P-R Int : 000 ms QRS Dur : 086 ms QT Int : 360 ms P-R-T Axes : 000 -12 -77 degrees QTc Int : 425 ms Atrial flutter with variable A-V block Left ventricular hypertrophy with repolarization abnormality ( R in aVL ) Abnormal ECG When compared with ECG of 04-FEB-2024 12:07, MANUAL COMPARISON REQUIRED, DATA IS UNCONFIRMED Confirmed by NIKHIL LAW, BRYCE ([id number]), editor publications IVAN VELASCO ([id number]) on 02/10/2024 10:30:48 AM Referred By: Confirmed By:BRYCE TEJEDA MD
--- NOTE | 2024-02-05 08:19 | PN.HOSP_ITS ---
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 Admitted to a monitored bed for further management Objective Data Objective Data Vital Signs: Vital Signs Temp Pulse Resp BP Pulse Ox O2 Del Method 99.4 F H 112 H 18 116/75 96 Room Air 02/05/24 04:00 02/05/24 06:08 02/05/24 04:00 02/05/24 04:54 02/05/24 04:00 02/05/24 04:00 Oxygen Delivery Method Room Air Weight: 51.2 kg Body Mass Index (BMI) 20.0 Intake & Output: Intake and Output for Last 24 Hours 02/03/24 02/04/24 02/05/24 23:59 23:59 23:59 Intake Total 780 / 1030 650 / 650 Balance 780 / 1030 650 / 650 Lab / Micro Data 02/05/24 06:48 02/05/24 06:48 Labs: Laboratory Results - last 24 hr 02/04/24 12:40: WBC 9.4, RBC 3.93 L, Hgb 11.2 L, Hct 37.3, MCV 94.9, MCH 28.5, M CHC 30.0 L, RDW Std Deviation 50.2 H, RDW Coeff of Dot 14.4, Plt Count 190, MPV 11.4, Immature Gran % (Auto) 0.800, Neut % (Auto) 65.5, Lymph % (Auto) 17.8 L, M samia % (Auto) 12.4 H, Eos % (Auto) 2.5, Baso % (Auto) 1.0, Absolute Neuts (auto) 6.2, Absolute Lymphs (auto) 1.68, Nucleated RBC % 0, PT 13.4, INR 1.0, APTT 26.9, Sodium 143, Potassium 4.3, Chloride 112 H, Carbon Dioxide 27.0, Anion Gap 4 L, BUN 22 H, Creatinine 0.72, Est GFR (MDRD) Af Amer 99, Est GFR (MDRD) Non-Af 82, BUN/Creatinine Ratio 30.6 H, Glucose 96, Calcium 9.0, Magnesium 2.3, Total Bilirubin 0.30, AST 17, ALT 21, Alkaline Phosphatase 69, Troponin I High Sens 28, Total Protein 6.1 L, Albumin 3.4, Globulin 2.7, Albumin/Globulin Ratio 1.3 02/05/24 06:48: WBC 11.7 H, RBC 3.68 L, Hgb 10.7 L, Hct 34.3 L, MCV 93.2, MCH 29.1, MCHC 31.2 L, RDW Std Deviation 49.1 H, RDW Coeff of Dot 14.5, Plt Count 196, MPV 11.8, Immature Gran % (Auto) 0.700, Neut % (Auto) 75.9 H, Lymph % (Auto) 11.2 L, [place] % (Auto) 10.6 H, Eos % (Auto) 0.9, Baso % (Auto) 0.7, A bsolute Neuts (auto) 8.9 H, Absolute Lymphs (auto) 1.32, Nucleated RBC % 0, PT 14.0, INR 1.1, Sodium 140, Potassium 4.0, Chloride 110 H, Carbon Dioxide 25.0, Anion Gap 5, BUN 15, Creatinine 0.64, Estim Creat Clear Calc 40.04, Est GFR (MDRD) Af Amer 112, Est GFR (MDRD) Non-Af 93, BUN/Creatinine Ratio 23.3 H, G lucose 109 H, Calcium 9.1, Magnesium 2.0, Total Bilirubin 0.60, AST 18, ALT 19, Alkaline Phosphatase 69, Total Protein 5.4 L, Albumin 3.0 L, Globulin 2.4, Albumin/Globulin Ratio 1.2, Triglycerides 78, Cholesterol 173, LDL Cholesterol 73, VLDL Cholesterol 16, HDL Cholesterol 84 Radiography Diagnostic Testing: Radiology Impression Brain CT 02/04/24 12:24 IMPRESSION: Chronic involutional changes of the brain, no acute hemorrhage or significant interval change. Electronically Signed: Cricket Baum MD at 13:28 EDT , Chest X-Ray 02/04/24 12:24 IMPRESSION: Low volume inspiration with cardiomegaly and no acute or active cardiopulmonary disease. Electronically Signed: Macario Monique MD at 13:02 EDT , Echocardiogram 02/04/24 15:16 Interpretation Summary The left ventricular ejection fraction is 40 %. Moderate (2+) eccentric mitral valve insufficiency. Pulmonary artery systolic pressure is 40 mmHg. Ordering Physician: Tiffany Grossman Performed By: Santiago Padilla RCS Physical Exam Narrative GENERAL: cooperative HEENT: Atraumatic; normocephalic EYES; Anicteric, Normal Conjunctiva NECK; supple, normal thyroid, RESPIRATORY: Diminished to auscultation CARDIOVASCULAR: Irregularly irregular, tachycardic GI: soft, normoactive bowel sounds, : No Renal angle tenderness; EXTREMITIES: No edema, no clubbing, MUSCULOSKELETAL: no muscle wasting NEURO: Awake; no lateralizing signs. 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 Admitted to a monitored bed for further management 1. A flutter .with 2-1 block. Patient admitted to a monitored bed heart rate has been ranging from 80s to 120. Patient did receive Cardizem bolus followed by p.o. Cardizem. 2D echo obtained as part of patient evaluation demonstrated EF of 40% with moderate mitral valve insufficiency and pulmonary arterial systolic pressure of 40 2. Recurrent falls ? Patient apparently started on Klonopin recently which is thought to be contributing requested for PT OT eval and long term care social worker to assist with discharge planning 3. Mood disorder NOS -as stated above patient was recently started on Klonopin, she is also on lamotrigine as well as mirtazapine 4. Anemia - Secondary to chronic disorder monitoring H&H and transfuse if patient becomes symptomatic or hemoglobin falls below 7 5. DVT prophylaxis ? On Lovenox Time spent in the patient's overall evaluation,decision-making process, review of diagnostic data, adjustment of management, discussion with other providers, nursing nursing and ancillary staff involved in patient's care documentation, 36 Minutes Charges/Coding Visit Charges Inpatient E&M: 63928 Subs Hosp L2
[2024-02-05] MEDS: Enoxaparin 40 MG/0.4 ML Syringe SC (09:53)
[2024-02-05] MEDS: lamoTRIgine 25 MG Tablet PO ×2 (09:53→21:56)
[2024-02-05] MEDS: DULoxetine Hcl 30 MG Capsule PO ×2 (09:53→21:55)
[2024-02-05] MEDS: Aspirin 325 MG Tablet PO (09:53)
[2024-02-05] MEDS: Pantoprazole Sodium 40 MG Tablet PO (09:56)
[2024-02-05] MEDS: Senna/Docusate Sodium 1 Tablet 2 TABLET PO (09:56)
--- NOTE | 2024-02-05 12:30 | CASEMGMT ---
Addendum entered by Joy Mcdowell 02/05/24 14:38: Pt currently going to [facility] for OP therapy once a week and plans to continue this. She does drive herself to/from these appts. Original Note: RN?CM?TICKETER?CM?to room to meet with patient for initial transition planning/care coordination?assessment.?RN?CM?introduced self and role at [facility].? Pt voices understanding and consents to?assessment?at this time.? Pt sitting up in bed in no distress at this time.? Pt is A/O at this time, but forgetful/poor historian. Daughter, Patty, @ bedside and pt agreeable to her being present during assessment. Care providers, pharmacy, and demographics verified/updated at this time with pt and daughter. PCP: Dr Lino Specialists: WHJuaquin/Cardiology, Dr Steel-kehinde wang, Dr Soni-psychiatrist Preferred Pharmacy: [facility] Prescription Benefit:?Yes Living Will/HPOA:?dtr is not sure if pt has done a LW, but she does have a HCPOA, who is her daughter, Patty. LNOK: dtr/POA, Patty. dtr, Summer Living Arrangements: Lives alone in one-story home w/basement w/3 steps to enter. Pt is indep w/ADL's. Has a cleaning lady come every 2 weeks. Pt buys her own groceries and prepares light meals, but often does not do much cooking. Patty comes to her home about 3 x's/week and sets up pt's weekly pill containers (2 wks at a time). Dtr also goes to appts w/her. Transportation:?Pt states drives self and states no transportation concerns at this time.? Daughter can also transport pt. DME: ?Pt has shower chair, rollator, and hand-held shower, and 2 canes available, but does not use any of it currently. Dtr interested in Medical alert info. Provided at this time. ? No need for further DME at this time.? HHC/SNF: No hx of either. Pt is not homebound and does not meet criteria for HHC. Discussed Pt Link and CCN w/pt and dtr. Dtr interested in CCN. Referral placed. Dtr interested in Assisted Living info to have as resource for the future, if pt would be interested, but she states she is not ready for this at this time. List of Assisted Living facilities provided along w/Care Patrol info. Dtr also given Alzheimer's support info. Dtr states she will be going to [place] for a couple of weeks and pt's other dtr, Summer, to be support for pt/check in on her. Offered compliance aide agency list and dtr interested in this. Provided at this time. Pt and dtr wish for pt to return home and state have no further concerns with going home at time of discharge. PLAN:??Home w/family support CCN referral made. Tabby DAWSONN?RN?CM
--- NOTE | 2024-02-05 14:03 | CASEMGMT ---
Met with patient and her daughter to complete SEARS form. SEARS form explained to both who voiced understanding. Patient signed form. Original form placed in pt?s chart and copy provided to patient. Dolly Harrison, Discharge Planning Asst
--- NOTE | 2024-02-05 14:48 | CHAPLAIN ---
Type of Pastoral Visit _x__ Initial Visit ___ Follow-up Visit ___ On-call Visit ___ General Patient Visit ___ Spiritual Assessment ___ Family Conference ___ Bereavement ___ Rapid Response ___ Code Blue ___ Other (describe below) Pastoral Care Referral From _x__ Patient ___ Family ___ Nurse ___ Physician ___ Tobacco Stripping Machine Operator ___ Disk And Tape Machine Tender ___ Other (describe below) Sacrament/Intervention _x__ Active listening ___ Anointing ___ Lutheran ___ Bereavement ___ Communion _x__ Roma exploration ___ _x__ Life review _x__ Prayer ___ Reconciliation ___ Sacrament of Sick _x__ Supportive presence ___ Wedding ___ Other (describe below) Pastoral Comments patient and her daughter are in the room; introduced self and role to the patient who then described why she was in the hospital; pt says that this is a new issue and at first she was very discouraged and anxious about being here; however pt says that today is better and she now understands what is going on; pt is happy that she will not have a surgery and that Medications will be given; daughter helps her explain her situation and what she has learned so far; pt also speaks to her mormon conversion to Catholicism; offer of support and prayers is received with thanks for being here and seeing me
[2024-02-05] MEDS: Gabapentin 600 MG Tablet PO (21:55)
[2024-02-05] MEDS: Mirtazapine 15 MG Tablet 7.5 MG PO (21:56)
[2024-02-05] MEDS: MELATONIN 10 MG TABLET PO (21:56)
[2024-02-06] MEDS: dilTIAZem 60 MG Tablet PO ×3 (00:43→12:05)
[2024-02-06 05:30] VITALS: BP 123/50; PULSE 65; RESP 16; TEMP 36.4; O2SAT 94
[2024-02-06 06:21] LABS: Absolute Lymphocyte Count 1.61 X10^3/uL (0.83-4.51); Absolute Neutrophil Count 4.9 X10^3/uL (2.0-7.7); Basophil# 0.07 X10^3/uL; Basophil% 0.9 % (0-1); Eosinophil# 0.13 X10^3/uL; Eosinophils% 1.6 % (0-5); Hemoglobin 10.1 g/dL (12.0-15.0); Lymphocyte # 1.61 X10^3/ul (0.83-4.51); Lymphocyte % 20.2 % (19-41); Mean Corp Hgb Conc 31.6 g/dL (32-36); Mean Corpuscular Hgb 29.3 pg (27.0-32.0); Mean Corpuscular Volume 92.8 fL (81-99); Mean Platelet Vol. 11.6 fl (6.2-12.0); NRBC Flagged by Analyzer 0 % (0-5); Neutrophil # 4.91 X10^3/uL (2.7-7.7); Neutrophil % 61.5 % (47-70); Platelet Count 176 K/mm3 (150-450); RBC Distribution Width CV 14.5 % (11.6-14.6); RBC Distribution Width SD 49.2 fl (35.1-43.9); Red Blood Count 3.45 M/mm3 (4.2-5.4)
[2024-02-06 06:55] LABS: Anion Gap 5 (5-15); BUN 20 mg/dL (7-18); BUN/Creat Ratio 29.2 RATIO (10-20); Calcium,Total 8.5 mg/dL (8.5-10.1); Chloride 114 mmol/L (98-107); Creatinine, Serum 0.69 mg/dL (0.55-1.02); EST Glomerular Filtration Rate 86 mL/min (>60); Est Glom Filt Rate - Afr Amer 104 mL/min (>60); Estimated Creatinine Clearance 40.04 ml/min; Glucose 111 mg/dL (74-106); Magnesium 2.2 mg/dL (1.6-2.6); Phosphorus 2.3 mg/dL (2.5-4.9); Potassium 3.8 mmol/L (3.5-5.1); Sodium Level 144 mmol/L (136-145)
[2024-02-06] MEDS: lamoTRIgine 25 MG Tablet PO (08:28)
[2024-02-06] MEDS: Aspirin 325 MG Tablet PO (08:28)
[2024-02-06] MEDS: Pantoprazole Sodium 40 MG Tablet PO (08:28)
[2024-02-06] MEDS: Enoxaparin 40 MG/0.4 ML Syringe SC (08:29)
[2024-02-06] MEDS: DULoxetine Hcl 30 MG Capsule PO (08:29)
--- NOTE | 2024-02-06 09:15 | PN.HOSP_ITS ---
Reason for Visit Reason for Visit: Diagnoses Unspecified atrial flutter (02/04/24) History of falling (02/04/24) Objective Data Objective Data Vital Signs: Vital Signs Temp Pulse Resp BP Pulse Ox O2 Del Method 97.5 F L 65 16 123/50 H 94 Room Air 02/06/24 05:30 02/06/24 05:30 02/06/24 05:30 02/06/24 05:30 02/06/24 05:30 02/06/24 08:00 Oxygen Delivery Method Room Air Weight: 112 lb 14.027 oz Body Mass Index (BMI) 20.0 Intake & Output: Intake and Output for Last 24 Hours 02/04/24 02/05/24 02/06/24 23:59 23:59 23:59 Intake Total 780 / 1030 1650 / 1900 300 / 300 Balance 780 / 1030 1650 / 1900 300 / 300 Lab / Micro Data 02/06/24 05:43 02/06/24 05:43 Labs: Laboratory Results - last 24 hr 02/06/24 05:43: WBC 8.0, RBC 3.45 L, Hgb 10.1 L, Hct 32.0 L, MCV 92.8, MCH 29.3, MCHC 31.6 L, RDW Std Deviation 49.2 H, RDW Coeff of Dot 14.5, Plt Count 176, MPV 11.6, Immature Gran % (Auto) 0.800, Neut % (Auto) 61.5, Lymph % (Auto) 20.2, M [place] % (Auto) 15.0 H, Eos % (Auto) 1.6, Baso % (Auto) 0.9, Absolute Neuts (auto) 4.9, Absolute Lymphs (auto) 1.61, Nucleated RBC % 0, Sodium 144, Potassium 3.8, Chloride 114 H, Carbon Dioxide 25.0, Anion Gap 5, BUN 20 H, Creatinine 0.69, Estim Creat Clear Calc 40.04, Est GFR (MDRD) Af Amer 104, Est GFR (MDRD) Non-Af 86, BUN/Creatinine Ratio 29.2 H, Glucose 111 H, Calcium 8.5, Phosphorus 2.3 L, Magnesium 2.2 Physical Exam Narrative GENERAL: cooperative HEENT: Atraumatic; normocephalic EYES; Anicteric, Normal Conjunctiva NECK; supple, normal thyroid, RESPIRATORY: Diminished to auscultation CARDIOVASCULAR: Irregularly irregular, tachycardic GI: soft, normoactive bowel sounds, : No Renal angle tenderness; EXTREMITIES: No edema, no clubbing, MUSCULOSKELETAL: no muscle wasting NEURO: Awake; no lateralizing signs. SKIN: No Rash PSYCH; appears anxious Const alert and oriented x3 HEENT normocephalic Eyes PERRL Neck no lymphadenopathy Resp normal respiratory effort Cardio regular rate, S1 normal heart sound and S2 normal heart sound GI normal to inspection, nondistended, normoactive bowel sounds Extremity normal to inspection Skin no rashes or lesions noted Neuro oriented x3 Assessment & Plan Assessment/Plan (1) Atrial flutter: (2) History of falling: (3) Atrial flutter with rapid ventricular response: PLAN: Plan 1. A flutter .with 2-1 block. Patient admitted to a monitored bed heart rate has been ranging from 80s to 120. Patient did receive Cardizem bolus followed by p.o. Cardizem. 2D echo obtained as part of patient evaluation demonstrated EF of 40% with moderate mitral valve insufficiency and pulmonary arterial systolic pressure of 40 2. Recurrent falls ? Patient apparently started on Klonopin recently which is thought to be contributing requested for PT OT eval and certified social workers in health care to assist with discharge planning 3. Mood disorder NOS -as stated above patient was recently started on Klonopin, she is also on lamotrigine as well as mirtazapine 4. Anemia - Secondary to chronic disorder monitoring H&H and transfuse if patient becomes symptomatic or hemoglobin falls below 7 5. DVT prophylaxis ? On Lovenox
[2024-02-06 11:30] VITALS: BP 115/79; PULSE 78; RESP 16; TEMP 36.3; O2SAT 100
--- NOTE | 2024-02-06 14:01 | PCM.DC.SUM ---
Providers Date of Admission: 02/04/24 Date of Discharge: 02/06/24 Primary Care Physician: Dr. Magdy Lino MD Reason For Visit: AFLUTTER Diagnosis Discharge Diagnosis (1) Atrial flutter: Status: Acute Code(s): I48.92 - Unspecified atrial flutter (2) History of falling: Status: Chronic Code(s): Z91.81 - History of falling (3) Atrial flutter with rapid ventricular response: Status: Acute Code(s): I48.92 - Unspecified atrial flutter Plan 88-year-old female was admitted for concerns regarding atrial flutter with rapid ventricular rate. She was seen in cardiology clinic and was referred to the hospital for further inpatient management of a flutter with RVR. Since initiation of Cardizem heart rate has been much better controlled. Given her history of recurrent falls she was not considered to be a good candidate for anticoagulation. As per cardiology recommendations she is being discharged on aspirin 325 mg daily to be taken at home. She will continue oral cardizem 60 mg q6h daily. Medications at Discharge Home Medications cholecalciferol (vitamin D3) 25 mcg (1,000 unit) tablet 25 mcg PO DAILY 02/03/24 duloxetine 30 mg capsule,delayed release 30 mg PO BID DEPRESSION 02/03/24 gabapentin 600 mg tablet 600 mg PO QHS NERVE PAIN 02/03/24 lamotrigine 25 mg tablet 25 mg PO BID #180 tabs 02/03/24 mirtazapine 7.5 mg tablet 7.5 mg PO QHS DEPRESSION 02/03/24 [id number] 8 mg-folic 400 mcg-K 50 mcg-lutein 300 mcg tablet (Centrum Superior Women) 1 tab PO DAILY HEALTH MAINTENANCE 02/03/24 vit C 250 mg-vit E 90 mg-zinc 40 mg-copper 1 [id number] capsule (PreserVision AREDS-2) 1 tab PO BID EYE HEALTH 02/03/24 acetaminophen 650 mg tablet,extended release (8 Hour Pain Reliever) 1,300 mg PO Q8H PRN pain 02/04/24 calcium carbonate 500 mg PO DAILY SUPPLEMENT 02/04/24 clonazepam 0.5 mg tablet 0.25 mg PO BID ANXIETY 02/04/24 aspirin 325 mg capsule 325 mg PO DAILY #30 caps 02/06/24 diltiazem HCl 60 mg tablet 60 mg PO Q6 #60 tabs 02/06/24 Hospital Course Operations None Procedures None Summary of Care Provided Hospital Course: 88-year-old female was admitted for concerns regarding atrial flutter with rapid ventricular rate. She was seen in cardiology clinic and was referred to the hospital for further inpatient management of a flutter with RVR. Since initiation of Cardizem heart rate has been much better controlled. Given her history of recurrent falls she was not considered to be a good candidate for anticoagulation. As per cardiology recommendations she is being discharged on aspirin 325 mg daily to be taken at home 1. A flutter .with 2-1 block. - Patient admitted to a monitored bed heart rate has been ranging from 80s to 120. - Patient did receive Cardizem bolus followed by p.o. Cardizem. - 2D echo obtained as part of patient evaluation demonstrated EF of 40% with moderate mitral valve insufficiency and pulmonary arterial systolic pressure of 40 -Will continue her on Cardizem 60 mg every 6 hours and aspirin 325 mg daily 2. Recurrent falls ?Was evaluated by physical therapy, deemed to be stable to go home 3. Mood disorder NOS -as stated above patient was recently started on Klonopin, she is also on lamotrigine as well as mirtazapine, will continue medication at home 4. Anemia - Secondary to chronic disorder monitoring H&H and transfuse if patient becomes symptomatic or hemoglobin falls below 7 Physical Exam Const alert and oriented x3 HEENT normocephalic Eyes PERRL Neck no lymphadenopathy Resp normal respiratory effort Cardio regular rate, S1 normal heart sound and S2 normal heart sound GI normal to inspection, nondistended, normoactive bowel sounds Extremity normal to inspection Skin no rashes or lesions noted Neuro oriented x3 Weight / BMI Weight Weight: 112 lb 14.027 oz Body Mass Index (BMI) 20.0 ABG / Lab / Microbiology Data 02/06/24 05:43 02/06/24 05:43 Laboratory: Laboratory Results - last 24 hr 02/06/24 05:43: WBC 8.0, RBC 3.45 L, Hgb 10.1 L, Hct 32.0 L, MCV 92.8, MCH 29.3, MCHC 31.6 L, RDW Std Deviation 49.2 H, RDW Coeff of Dot 14.5, Plt Count 176, MPV 11.6, Immature Gran % (Auto) 0.800, Neut % (Auto) 61.5, Lymph % (Auto) 20.2, [place] % (Auto) 15.0 H, Eos % (Auto) 1.6, Baso % (Auto) 0.9, Absolute Neuts (auto) 4.9, Absolute Lymphs (auto) 1.61, Nucleated RBC % 0, Sodium 144, Potassium 3.8, Chloride 114 H, Carbon Dioxide 25.0, Anion Gap 5, BUN 20 H, Creatinine 0.69, Estim Creat Clear Calc 40.04, Est GFR (MDRD) Af Amer 104, Est GFR (MDRD) Non-Af 86, BUN/Creatinine Ratio 29.2 H, Glucose 111 H, Calcium 8.5, Phosphorus 2.3 L, Magnesium 2.2 D/C Instructions Discharge Diet: No restrictions Meaningful Use Info Meaningful Use Meaningful Use Diagnoses (Choose all that apply): None applicable Ischemic Stroke Statin Dosing Therapy Reference: STATIN DOSE THERAPY REFERENCE: * Patients > 75 years receive moderate or high dose statin therapy. * Patients 75 years or YOUNGER should receive HIGH intensity statin dose unless contraindicated. You will be required to document reason for non-treatment if statin daily dose does not meet guidelines. HIGH DOSE STATIN THERAPY DAILY Atorvastatin > than or = to 40 mg Rosuvastatin > than or = to 20 mg Amlodipine + Atorvastatin > than or = to 2.5/40 mg Ezetimibe + Simvastatin 10/80 mg Simvastatin 80mg Discharge Plan Admission Admit Date/Time: 02/04/24 14:25 Primary Reason for Your Visit: Atrial flutter with rapid ventricular rate Attending Provider: Alicia Clifton Primary Care Provider: Magdy Lino [employer] Providers: Tiffany Grossman; [place] Discharge Orders/Prescriptions Prescriptions: New diltiazem HCl 60 mg Tablet 60 mg PO Q6 Qty: 60 0RF aspirin 325 mg capsule 325 mg PO DAILY Qty: 30 0RF Continued lamotrigine 25 mg tablet 25 mg PO BID Qty: 180 gabapentin 600 mg tablet 600 mg PO QHS duloxetine 30 mg capsule,delayed release(DR/EC) 30 mg PO BID cholecalciferol (vitamin D3) 25 mcg (1,000 unit) tablet 25 mcg PO DAILY PreserVision AREDS-2 250-90-40-1 mg capsule 1 tab PO BID Centrum Silver Women 8 mg iron-400 mcg-50 mcg tablet 1 tab PO DAILY mirtazapine 7.5 mg tablet 7.5 mg PO QHS clonazepam 0.5 mg tablet 0.25 mg PO BID calcium carbonate 500 mg calcium (1,250 mg) tablet,chewable 500 mg PO DAILY acetaminophen [8 Hour Pain Reliever] 650 mg tablet extended release 1,300 mg PO Q8H PRN (Reason: pain) Discontinued ibuprofen [Advil] 200 mg tablet 400 mg PO BID PRN (Reason: pain) Referrals / Follow Up: Magdy Lino Chi, MD [Primary Care Provider] - Disposition Disposition (needs filled in before D/C Order can be placed): Home, Self Care Charges/Coding Visit Charges Inpatient E&M: 68158 Disch Hosp
[2024-02-06 15:21] LABS: Vitamin B12 373 pg/mL (211-911); Vitamin D,25 Hydroxy 63.8 ng/mL
[2024-02-06 15:50] VITALS: BP 98/49; PULSE 61; RESP 16; TEMP 36.7; O2SAT 100
== END 2024-02-06 15:50 | disposition home or self-care (01) ==
LOC: ED 14:37 → PCU 14:50
PROVIDERS: Internal Medicine; Admitting Provider Internal Medicine; Emergency Provider Emergency Medicine; PCP Family Medicine Geriatric Medicine; Visit Provider Internal Medicine
DX: I48.92 Unspecified atrial flutter (principal); Z87.891 Personal history of nicotine dependence; E78.5 Hyperlipidemia, unspecified; F39 Unspecified mood [affective] disorder; I10 Essential (primary) hypertension; Z91.81 History of falling; Z79.82 Long term (current) use of aspirin; Z79.899 Other long term (current) drug therapy; S00.11XD Contusion of right eyelid and periocular area, subsequent encounter; W19.XXXD Unspecified fall, subsequent encounter; K21.9 Gastro-esophageal reflux disease without esophagitis; F32.A Depression, unspecified; F41.9 Anxiety disorder, unspecified; R29.6 Repeated falls; S50.11XD Contusion of right forearm, subsequent encounter; D63.8 Anemia in other chronic diseases classified elsewhere; I08.1 Rheumatic disorders of both mitral and tricuspid valves; I44.39 Other atrioventricular block; R94.31 Abnormal electrocardiogram [ECG] [EKG]
CPT/HCPCS: 36415; 70450; 71045; 80048; 80053; 80061; 82306; 82607; 83735; 84100; 84484; 85025; 85610; 85730; 93005; 93306; 96372; 96374; 96375; 96376; 97161; 97165; 97802; 99221; 99285; J7030; Q9957; A4216; G0378; J0153

== ENCOUNTER → 2024-02-19 | Outpatient (CLI) | payer MEDICARE, SELFPAY ==
[2024-02-19 11:17] LABS: Absolute Lymphocyte Count 2.47 X10^3/uL (0.83-4.51); Absolute Neutrophil Count 4.5 X10^3/uL (2.0-7.7); Basophil# 0.15 X10^3/uL; Basophil% 1.8 % (0-1); Eosinophil# 0.33 X10^3/uL; Eosinophils% 3.9 % (0-5); Hemoglobin 11.6 g/dL (12.0-15.0); Lymphocyte # 2.47 X10^3/ul (0.83-4.51); Lymphocyte % 29.2 % (19-41); Mean Corp Hgb Conc 30.5 g/dL (32-36); Mean Corpuscular Hgb 28.8 pg (27.0-32.0); Mean Corpuscular Volume 94.3 fL (81-99); Mean Platelet Vol. 12.3 fl (6.2-12.0); Monocyte# 0.93 X10^3/uL; NRBC Flagged by Analyzer 0 % (0-5); Neutrophil # 4.52 X10^3/uL (2.7-7.7); Neutrophil % 53.3 % (47-70); Platelet Count 261 K/mm3 (150-450); RBC Distribution Width SD 48.2 fl (35.1-43.9); Red Blood Count 4.03 M/mm3 (4.2-5.4); Reticulocyte Count 1.34 % (0.5-1.5); White Blood Count 8.5 K/mm3 (4.4-11.0)
[2024-02-19 11:56] LABS: Vitamin B12 595 pg/mL (211-911)
[2024-02-19 13:02] LABS: Ferritin 83 ng/mL (8-252); Iron 80 ug/dL (50-170); Iron Binding Capacity,Total 341 ug/dL (250-450); PERCENT IRON SATURATION 23.5 % (15.0-55.0)
== END | disposition home or self-care (01) ==
LOC: LAB 09:54
PROVIDERS: PCP Family Medicine Geriatric Medicine; Referring Provider Family Medicine Geriatric Medicine; Visit Provider Family Medicine Geriatric Medicine
DX: I10 Essential (primary) hypertension (principal); D50.9 Iron deficiency anemia, unspecified
CPT/HCPCS: 36415; 82607; 82728; 82746; 83540; 83550; 85025; 85045

== ENCOUNTER → 2024-02-21 | Outpatient (CLI) | payer MEDICARE, SELFPAY | END | disposition home or self-care (01) | LOC: LABSPEC 08:38 | PROVIDERS: PCP Family Medicine Geriatric Medicine; Referring Provider Family Medicine Geriatric Medicine; Visit Provider Family Medicine Geriatric Medicine | DX: I10 Essential (primary) hypertension (principal); D50.9 Iron deficiency anemia, unspecified | CPT/HCPCS: 82274 ==

== ENCOUNTER → 2024-03-17 | Outpatient (CLI) | payer MEDICARE, SELFPAY ==
[2024-03-17 12:38] LABS: Absolute Lymphocyte Count 1.93 X10^3/uL (0.83-4.51); Absolute Neutrophil Count 6.2 X10^3/uL (2.0-7.7); Basophil# 0.11 X10^3/uL; Basophil% 1.1 % (0-1); Eosinophil# 0.51 X10^3/uL; Eosinophils% 5.1 % (0-5); Hematocrit 40.2 % (37-47); Hemoglobin 12.2 g/dL (12.0-15.0); Lymphocyte # 1.93 X10^3/ul (0.83-4.51); Lymphocyte % 19.5 % (19-41); Mean Corp Hgb Conc 30.3 g/dL (32-36); Mean Corpuscular Hgb 28.6 pg (27.0-32.0); Mean Corpuscular Volume 94.4 fL (81-99); Mean Platelet Vol. 11.6 fl (6.2-12.0); Monocyte# 1.07 X10^3/uL; Monocyte% 10.8 % (0-10); NRBC Flagged by Analyzer 0 % (0-5); Neutrophil % 62.5 % (47-70); Platelet Count 264 K/mm3 (150-450); RBC Distribution Width SD 47.8 fl (35.1-43.9); Red Blood Count 4.26 M/mm3 (4.2-5.4); White Blood Count 9.9 K/mm3 (4.4-11.0)
== END | disposition home or self-care (01) ==
LOC: POLAB3 12:04
PROVIDERS: PCP Family Medicine Geriatric Medicine; Visit Provider Family Medicine Geriatric Medicine
DX: D64.9 Anemia, unspecified (principal); I10 Essential (primary) hypertension
CPT/HCPCS: 36415; 85025

== ENCOUNTER → 2024-04-08 | Outpatient (CLI) | payer MEDICARE, SELFPAY ==
[2024-04-08 17:35] LABS: Anion Gap 5 (5-15); BUN 28 mg/dL (7-18); BUN/Creat Ratio 23.3 RATIO (10-20); Calcium,Total 9.8 mg/dL (8.5-10.1); Chloride 108 mmol/L (98-107); EST Glomerular Filtration Rate 45 mL/min (>60); Est Glom Filt Rate - Afr Amer 55 mL/min (>60); Glucose 103 mg/dL (74-106); Potassium 4.8 mmol/L (3.5-5.1); Sodium Level 141 mmol/L (136-145)
== END | disposition home or self-care (01) ==
LOC: LAB 16:29
PROVIDERS: PCP Family Medicine Geriatric Medicine
DX: Z79.899 Other long term (current) drug therapy (principal)
CPT/HCPCS: 36415; 80048

== ENCOUNTER → 2024-05-15 | Outpatient (CLI) | payer MEDICARE, SELFPAY ==
[2024-05-15 10:43] LABS: Absolute Lymphocyte Count 1.88 X10^3/uL (0.83-4.51); Absolute Neutrophil Count 4.7 X10^3/uL (2.0-7.7); Basophil% 1.2 % (0-1); Eosinophil# 0.35 X10^3/uL; Eosinophils% 4.3 % (0-5); Hematocrit 34.2 % (37-47); Hemoglobin 10.6 g/dL (12.0-15.0); Lymphocyte # 1.88 X10^3/ul (0.83-4.51); Mean Corpuscular Hgb 29.1 pg (27.0-32.0); Mean Platelet Vol. 10.5 fl (6.2-12.0); Monocyte# 1.04 X10^3/uL; Monocyte% 12.7 % (0-10); NRBC Flagged by Analyzer 0 % (0-5); Neutrophil # 4.68 X10^3/uL (2.7-7.7); Neutrophil % 57.2 % (47-70); Platelet Count 189 K/mm3 (150-450); RBC Distribution Width CV 14.1 % (11.6-14.6); RBC Distribution Width SD 48.8 fl (35.1-43.9); Red Blood Count 3.64 M/mm3 (4.2-5.4); White Blood Count 8.2 K/mm3 (4.4-11.0)
== END | disposition home or self-care (01) ==
LOC: LABSPEC 08:38
PROVIDERS: PCP Family Medicine Geriatric Medicine; Referring Provider Family Medicine Geriatric Medicine; Visit Provider Family Medicine Geriatric Medicine
DX: D64.9 Anemia, unspecified (principal)
CPT/HCPCS: 36415; 82274; 85025

== ENCOUNTER → 2024-05-29 | Outpatient (CLI) | payer MEDICARE, SELFPAY ==
[2024-05-29 11:33] LABS: Basophil# 0.15 X10^3/uL; Basophil% 1.1 % (0-1); Eosinophil# 0.28 X10^3/uL; Eosinophils% 2.1 % (0-5); Hematocrit 39.1 % (37-47); Hemoglobin 12.2 g/dL (12.0-15.0); Lymphocyte % 20.6 % (19-41); Mean Corp Hgb Conc 31.2 g/dL (32-36); Mean Corpuscular Volume 96.1 fL (81-99); Mean Platelet Vol. 10.2 fl (6.2-12.0); Monocyte# 1.97 X10^3/uL; Monocyte% 14.5 % (0-10); NRBC Flagged by Analyzer 0 % (0-5); Neutrophil # 8.01 X10^3/uL (2.7-7.7); POSITIVE DIFFERENTIAL YES; Platelet Count 313 K/mm3 (150-450); RBC Distribution Width SD 52.6 fl (35.1-43.9); Red Blood Count 4.07 M/mm3 (4.2-5.4); White Blood Count 13.6 K/mm3 (4.4-11.0)
[2024-05-29 11:36] LABS: Differential Indicated SCAN CRITERIA MET
[2024-05-29 12:03] LABS: Vitamin D,25 Hydroxy 43.3 ng/mL
[2024-05-29 12:11] LABS: ALB/GLOB Ratio 1.5 RATIO (0.9-2.4); AST(SGOT) 16 U/L (15-37); Alanine Aminotransfer ALT/SGPT 24 U/L (13-56); Albumin, Serum 3.9 g/dL (3.2-5.0); Alkaline Phosphatase 77 U/L (45-117); Anion Gap 5 (5-15); BUN 28 mg/dL (7-18); BUN/Creat Ratio 23.7 RATIO (10-20); Calcium,Total 9.4 mg/dL (8.5-10.1); Chloride 109 mmol/L (98-107); Creatinine, Serum 1.18 mg/dL (0.55-1.02); EST Glomerular Filtration Rate 46 mL/min (>60); Est Glom Filt Rate - Afr Amer 56 mL/min (>60); Ferritin 248 ng/mL (8-252); Globulin 2.6 g/dL (2.2-4.2); Glucose 104 mg/dL (74-106); Iron 92 ug/dL (50-170); Iron Binding Capacity,Total 350 ug/dL (250-450); PERCENT IRON SATURATION 26.3 % (15.0-55.0); Potassium 5.2 mmol/L (3.5-5.1); Protein, Total 6.5 g/dL (6.4-8.2); Sodium Level 138 mmol/L (136-145)
[2024-06-01 14:13] LABS: Pathologist Review Reviewed
== END | disposition home or self-care (01) ==
LOC: LAB 10:35
PROVIDERS: PCP Family Medicine Geriatric Medicine; Referring Provider Family Medicine Geriatric Medicine; Visit Provider Family Medicine Geriatric Medicine
DX: I10 Essential (primary) hypertension (principal); E55.9 Vitamin D deficiency, unspecified; D64.9 Anemia, unspecified
CPT/HCPCS: 36415; 80053; 82306; 82728; 83540; 83550; 84443; 85025

== ENCOUNTER → 2024-09-10 | Outpatient (CLI) | payer MEDICARE, SELFPAY ==
[2024-09-10 12:22] LABS: Syphilis Antibodies Non-reactive; Vitamin B12 937 pg/mL (211-911)
[2024-09-10 13:15] LABS: Anion Gap 6 (5-15); BUN 20 mg/dL (7-18); BUN/Creat Ratio 15.6 RATIO (10-20); Calcium,Total 10.7 mg/dL (8.5-10.1); Chloride 109 mmol/L (98-107); Creatinine, Serum 1.28 mg/dL (0.55-1.02); EST Glomerular Filtration Rate 42 mL/min (>60); Est Glom Filt Rate - Afr Amer 51 mL/min (>60); Glucose 97 mg/dL (74-106); Potassium 4.1 mmol/L (3.5-5.1); Sodium Level 141 mmol/L (136-145)
== END | disposition home or self-care (01) ==
PROVIDERS: PCP Family Medicine Geriatric Medicine; Referring Provider Family Medicine Geriatric Medicine; Visit Provider Family Medicine Geriatric Medicine
DX: G93.40 Encephalopathy, unspecified (principal); G31.84 Mild cognitive impairment of uncertain or unknown etiology
CPT/HCPCS: 36415; 80048; 82607; 82746; 86780

== ENCOUNTER → 2024-09-14 | Outpatient (CLI) | payer MEDICARE, SELFPAY ==
[2024-09-14 10:54] LABS: PTHIN 26.9 pg/mL (18.4-80.1)
== END | disposition home or self-care (01) ==
PROVIDERS: PCP Family Medicine Geriatric Medicine; Referring Provider Family Medicine Geriatric Medicine; Visit Provider Family Medicine Geriatric Medicine
DX: E83.52 Hypercalcemia (principal)
CPT/HCPCS: 36415; 83970

== ENCOUNTER → 2024-11-30 | Outpatient (CLI) | payer MEDICARE, SELFPAY ==
--- NOTE | 2024-11-30 10:35 | RAD_ITS ---
PROCEDURE: KNEE 3 VIEWS 11/30/2024 REASON FOR EXAM: R KNEE Right knee intermittently giving out. TECHNIQUE: 3 view(s) of the right knee COMPARISON: Right knee x-ray study dated 03/11/2023 FINDINGS: Diffuse osteopenia of the osseous structures of the right knee are noted. There are significant arthritic changes seen involving the medial femorotibial joint which is similar when compared to the prior exam. The lateral femoral tibial joint is well preserved. Mild arthritic changes are seen involving the patellofemoral joint. There are no fractures or dislocations. There is no suprapatellar bursa effusion. No appreciable soft tissue swelling is seen. RAD/Knee 3 Views IMPRESSION: Significant arthritic changes seen involving the medial femorotibial joint righ t knee. Moderate arthritic changes seen involving the patellofemoral joint right knee Diffuse osteopenia osseous structures right knee. There are no fractures or dislocations. Reading Location: [id number]
[2024-11-30 10:37] LABS: Absolute Lymphocyte Count 2.36 X10^3/uL (0.83-4.51); Absolute Neutrophil Count 2.4 X10^3/uL (2.0-7.7); Basophil# 0.09 X10^3/uL; Basophil% 1.5 % (0-1); Eosinophil# 0.32 X10^3/uL; Eosinophils% 5.4 % (0-5); Hematocrit 38.8 % (37-47); Lymphocyte # 2.36 X10^3/ul (0.83-4.51); Lymphocyte % 39.7 % (19-41); Mean Corp Hgb Conc 30.9 g/dL (32-36); Mean Corpuscular Hgb 29.9 pg (27.0-32.0); Mean Corpuscular Volume 96.5 fL (81-99); Mean Platelet Vol. 10.8 fl (6.2-12.0); Monocyte# 0.79 X10^3/uL; Monocyte% 13.3 % (0-10); NRBC Flagged by Analyzer 0 % (0-5); Neutrophil # 2.36 X10^3/uL (2.7-7.7); Neutrophil % 39.6 % (47-70); Platelet Count 243 K/mm3 (150-450); RBC Distribution Width CV 13.7 % (11.6-14.6); Red Blood Count 4.02 M/mm3 (4.2-5.4)
[2024-11-30 11:43] LABS: ALB/GLOB Ratio 2.2 RATIO (0.9-2.4); AST(SGOT) 19 U/L (<=31); Alanine Aminotransfer ALT/SGPT 12 U/L (<=34); Alkaline Phosphatase 86 U/L (35-104); Anion Gap 11 (5-15); BUN 19 mg/dL (4-19); BUN/Creat Ratio 17.6 RATIO (10-20); Calcium,Total 9.2 mg/dL (7.6-11.0); Carbon Dioxide 23.6 mmol/L (21.0-32.0); Chloride 108 mmol/L (98-108); Creatinine, Serum 1.09 mg/dL (0.70-1.20); EST Glomerular Filtration Rate 49 (>60); Globulin 1.8 g/dL (2.2-4.2); Glucose 77 mg/dL (70-99); Potassium 4.2 mmol/L (3.3-5.1); Protein, Total 5.8 g/dL (5.9-8.4); Sodium Level 143 mmol/L (133-145); Total Bilirubin 0.18 mg/dL (0.00-1.30); Vitamin D,25 Hydroxy 47.4 ng/mL (30-100)
== END | disposition home or self-care (01) ==
LOC: RAD 09:50
PROVIDERS: PCP Family Medicine Geriatric Medicine; Referring Provider Family Medicine Geriatric Medicine; Visit Provider Family Medicine Geriatric Medicine
DX: I10 Essential (primary) hypertension (principal); E55.9 Vitamin D deficiency, unspecified; M25.561 Pain in right knee
CPT/HCPCS: 36415; 73562; 80053; 82306; 84443; 85025

== ENCOUNTER → 2025-03-22 | Outpatient (CLI) | payer MEDICARE, SELFPAY ==
--- NOTE | 2025-03-22 14:05 | RAD_ITS ---
PROCEDURE: KNEE 4 OR MORE VIEWS 03/22/2025 REASON FOR EXAM: KNEE PAIN TECHNIQUE: KNEE 4 OR MORE VIEWS Laterality: Right COMPARISON: 11/30/2024 FINDINGS: BONES: No acute fracture or focal osseous lesion. JOINTS: Small suprapatellar joint effusion. No dislocation. Severe arthritic changes in the medial compartment with [id number] articulation, subchondral sclerosis and marginal osteophytes. Mild-moderate arthritic changes in the patellofemoral joint. SOFT TISSUES: The soft tissues are unremarkable. RAD/Knee 4 or More Views IMPRESSION: 1. NO ACUTE FINDINGS. 2. DEGENERATIVE OSTEOARTHROSIS. SMALL KNEE JOINT EFFUSION. Reading Location: [id number]
[2025-03-22 14:18] LABS: Hematocrit 38.2 % (37-47); Hemoglobin 12.0 g/dL (12.0-15.0); Immature Granulocytes Count 0.040 X10^3/uL (0.0-0.0); Mean Corp Hgb Conc 31.4 g/dL (32-36); Mean Corpuscular Volume 94.8 fL (81-99); Mean Platelet Vol. 11.0 fl (6.2-12.0); NRBC Flagged by Analyzer 0 % (0-5); Platelet Count 218 K/mm3 (150-450); RBC Distribution Width CV 13.0 % (11.6-14.6); RBC Distribution Width SD 45.2 fl (35.1-43.9); Red Blood Count 4.03 M/mm3 (4.2-5.4); White Blood Count 8.7 K/mm3 (4.4-11.0)
== END | disposition home or self-care (01) ==
PROVIDERS: PCP Family Medicine Geriatric Medicine; Visit Provider Family Medicine Geriatric Medicine
DX: M25.561 Pain in right knee (principal); R53.83 Other fatigue
CPT/HCPCS: 36415; 73564; 85025

== ENCOUNTER → 2025-04-20 | Outpatient (CLI) | payer MEDICARE, SELFPAY ==
[2025-04-20 16:52] LABS: Hematocrit 36.0 % (37-47); Hemoglobin 11.8 g/dL (12.0-15.0); Immature Granulocytes Count 0.020 X10^3/uL (0.0-0.0); Mean Corp Hgb Conc 32.8 g/dL (32-36); Mean Corpuscular Volume 94.2 fL (81-99); Mean Platelet Vol. 11.2 fl (6.2-12.0); NRBC Flagged by Analyzer 0 % (0-5); Platelet Count 222 K/mm3 (150-450); RBC Distribution Width CV 13.5 % (11.6-14.6); RBC Distribution Width SD 46.5 fl (35.1-43.9); Red Blood Count 3.82 M/mm3 (4.2-5.4); White Blood Count 7.0 K/mm3 (4.4-11.0)
[2025-04-20 17:36] LABS: AST(SGOT) 25 U/L (<=31); Alanine Aminotransfer ALT/SGPT 16 U/L (<=34); Albumin, Serum 4.4 g/dL (3.4-4.8); Alkaline Phosphatase 93 U/L (35-104); Anion Gap 10 (5-15); BUN 19 mg/dL (4-19); BUN/Creat Ratio 18.2 RATIO (10-20); Calcium,Total 9.5 mg/dL (7.6-11.0); Carbon Dioxide 25.4 mmol/L (21.0-32.0); Chloride 103 mmol/L (98-108); Globulin 1.9 g/dL (2.2-4.2); Glucose 97 mg/dL (70-99); Potassium 4.7 mmol/L (3.3-5.1)
[2025-04-21 00:38] LABS: Xtra Tube Kwok EXTRA TUBE
== END | disposition home or self-care (01) ==
LOC: POLAB3 16:33
PROVIDERS: PCP Family Medicine Geriatric Medicine; Visit Provider Family Medicine Geriatric Medicine
DX: I10 Essential (primary) hypertension (principal); R33.9 Retention of urine, unspecified
CPT/HCPCS: 36415; 80053; 84443; 85025; 87086; 87088

== ENCOUNTER 2025-05-25 11:00 | Outpatient (RCR) | payer MEDICARE, SELFPAY ==
--- NOTE | 2025-04-14 15:19 | HP.PTEVAL_ITS ---
Patient's Visit Information Visit Information Visit Information: MAREN PROCTOR is a 89 year old F referred to Physical Therapy by Dr. Magdy Lino MD with a diagnosis of R knee pain. Date of Evaluation: 04/14/25 Physical Therapist: SAMARA Riley Visit Plan Frequency: 2x /Week Duration: 2 Months Plan: Pt reports that she is anxious about machines and does not want to use them right away. 2X/ week for 8 weeks with R hip and knee AROM, stretching, strengthening starting in supine and going to sitting and then standing. Work on walking endurance and even start timing her ability to walk from waiting room back to treatment area after pt starts to build up her endurance. Subjective Subjective: Pt reports that she has had problems with her R knee for some time. The last time when she had the problem a therapist came to her house and did therapy. The knee has been getting worse over the last month since being discharged. She was noticing more discomfort and hurt with walking on it or just sitting. It has not waken her up at night. Walking back to the treatment room and to her car etc her L knee is now hurting also. Dr Lino said from the x-ray that she had water on her knee. She reports that he had mentioned draining it but she does not know who will drain it. Walking with the rollator helps her pain. She has fallen and for safety sake her daughters wants her to use the rollator. She lives in her own apartment at [place] [facility]. She does not drive and comes on the hospital van. Pain R knee pain: Pain Intensity (Out of 10): 5 L knee pain: Pain Intensity (Out of 10): 1 Objective Objective: Pt was SOB after walking back to the treatment room. 20 min into the eval she said,,,, I'm still SOB O2 sat ranged from 90-97% HR 68 BP 110/70 Pt felt anxious about getting ready for today and not sure what today entails Laid her down to catch her breath. Was able to relax more in supine. She was slightly dizzy when went to sit up but states that this is normal for her and it resolved quickly. Pt felt good to go back home but will have the nurse at her AL facility check her out to make sure it was just anxiety but she left feeling more normal and able to breath like normal. Gait: uses a rollator with flexed trunk. Pt uses shorter strides and walks slower with increase SOB Sit to stand: uses arms to help get out of the chair. Can get out of the chair LE MMT: R hip flex 14.2 and L 16.4 R knee ext 5.6 and L 8.9 R knee flex 15.2 and L 17.1 AROM: R knee AROM -5 to 105 L knee AROM 0- 130 Pt is able to bridge approx 1/2 normal ROM with increase tightness in B hip flexors. Pt is able to SLR B but has increase pain in R Quad in doing so Balance/Special Test Scores Lower Extremity Functional Score: 31 Goals Goal 1:: I HEP Goal Time Frame: 6-8 Weeks Goal 2:: Be able to walk with rollator back to treatment room without SOB and improved endurance Goal Time Frame: 6-8 Weeks Goal 3:: Increase R knee AROM (at the time of the eval: AROM: R knee AROM -5 to 105 L knee AROM 0- 130) Goal Time Frame: 6-8 Weeks Goal 4:: Increase LE strength (at the time of the eval: LE MMT: R hip flex 14.2 and L 16.4 R knee ext 5.6 and L 8.9 R knee flex 15.2 and L 17.1) Goal Time Frame: 6-8 Weeks Goal 5:: Decrease R knee pain by 50% Goal Time Frame: 6-8 Weeks Rehabilitation Potential Rehabilitation Potential: Good Anticipated Interventions Patient/Client Instruction: Educate patient on: Condition and Plan of Care For the Purpose of:: To decrease pain, To increase ROM, To improve nutrient delivery to tissue, To improve muscle performance and motor function, To improve ability to perform ADL's, To increase tolerance to activity/condition/position, To improve performance and independence with ADL's, To improve ability of physical actions for home/community/work/leisure, To improve gait and locomotor functions and To improve safety with gait Therapeutic Exercise to Include: Strength training, Endurance training, Balance training, Flexibilty training, Gait and locomotor training, Neuromotor development and Active ROM For the Purpose of:: To decrease pain, To increase ROM, To improve nutrient delivery to tissue, To improve muscle performance and motor function, To improve ability to perform ADL's, To increase tolerance to activity/condition/position, To improve performance and independence with ADL's, To decrease level of supervision to perform tasks, To improve ability of physical actions for home/community/work/leisure, To improve gait and locomotor functions, To improve health of tissue and To increase flexibility/ROM Functional Training to Include: Gait training For the Purpose of:: To improve gait and locomotor functions and To improve safety with gait Manual Therapy Techniques to Include: Passive ROM and Soft tissue mobilization For the Purpose of:: To decrease pain, To increase ROM, To improve nutrient delivery to tissue, To improve muscle performance and motor function, To improve ability to perform ADL's, To increase tolerance to activity/condition/position, To improve gait and locomotor functions, To improve health of tissue, To improve endurance, To improve balance and To improve safety with gait Text: Thank you for the opportunity to evaluate your patient. For Medicare and Medicare HMO plans, please review the plan of care and approve it. It will need to be FAXED BACK to us at [phone] for Medicare purposes. For Medicare only, by signing this I certify the plan of care. Please let me know if there are questions or concerns regarding this plan of care. Physician Signature: Date:
--- NOTE | 2025-05-25 11:53 | HP.PTDCSUM ---
Discharge Summary D/C summary: It has been my pleasure to treat MAREN PROCTOR referred by Dr. Magdy Lino MD, with the diagnosis of R knee pain for a total of 8 visit(s). Discharge Date: 05/25/25 Please see the following information for a summary of their discharge status. Subjective Subjective: Pt reports that her R knee is better and somedays are better than others. She feels that she can keep doing her exercises at home. Pt loved the therapist that she worked with. She has a nu-step at her place and will start using. Pain R knee pain: Pain Intensity (Out of 10): 2 L knee pain: Pain Intensity (Out of 10): Unrated Overall Improvement % Improvement: 80 Objective Objective/Function: AROM: R knee AROM -2 to 129 L knee AROM 0- 130) MMT: R hip flex 14.2 and L 16.4 R knee ext 9.7 and L 8.9 R knee flex 16.2 and L 17.1) Goals Goal 1:: I HEP Goal Progress: Goal Met Goal 2:: Be able to walk with rollator back to treatment room without SOB and improved endurance Goal Progress: Goal Met Goal 3:: Increase R knee AROM (at the time of the eval: AROM: R knee AROM -5 to 105 L knee AROM 0- 130) Goal Progress: Goal Met Goal 4:: Increase LE strength (at the time of the eval: LE MMT: R hip flex 14.2 and L 16.4 R knee ext 5.6 and L 8.9 R knee flex 15.2 and L 17.1) Goal Progress: Goal Met Goal 5:: Decrease R knee pain by 50% Goal Progress: Goal Met Plan Plan: DC PT to HEP D/C Information Discharge Comments: DC PT to HEP d/c sentence: If there are questions or concerns regarding this patient's physical therapy, please feel free to call me at [phone]. Thank you for the referral of this patient. Sincerely, Soraya Smith, MPT Balance/Gait/Functional tests Balance/Special Test Scores Lower Extremity Functional Score: 47 Improvement % Improvement: 80
== END 2025-05-25 19:00 | disposition home or self-care (01) ==
LOC: PT 11:00
PROVIDERS: PCP Family Medicine Geriatric Medicine; Referring Provider Family Medicine Geriatric Medicine; Visit Provider Family Medicine Geriatric Medicine
DX: M25.561 Pain in right knee (principal)
CPT/HCPCS: 97110; 97162; 97530

== ENCOUNTER → 2025-06-08 | Outpatient (CLI) | payer MEDICARE, SELFPAY ==
[2025-06-08 16:52] LABS: Hematocrit 36.2 % (37-47); Hemoglobin 11.3 g/dL (12.0-15.0); Immature Granulocytes Count 0.030 X10^3/uL (0.0-0.0); Mean Corp Hgb Conc 31.2 g/dL (32-36); Mean Corpuscular Volume 93.5 fL (81-99); Mean Platelet Vol. 11.2 fl (6.2-12.0); NRBC Flagged by Analyzer 0 % (0-5); Platelet Count 209 K/mm3 (150-450); RBC Distribution Width CV 13.4 % (11.6-14.6); RBC Distribution Width SD 46.0 fl (35.1-43.9); Red Blood Count 3.87 M/mm3 (4.2-5.4); White Blood Count 6.5 K/mm3 (4.4-11.0)
[2025-06-08 17:08] LABS: Vitamin D,25 Hydroxy 44.4 ng/mL (30-100)
[2025-06-08 17:30] LABS: Cholesterol 200 mg/dL (<=200); Low Density Lipoprotein Calc. 98 mg/dL; Triglycerides 85 mg/dL; Very Low Density Lipoprotein 17 mg/dL (5-40); cholesterol:hdl ratio screen 2.30
[2025-06-08 17:41] LABS: AST(SGOT) 25 U/L (<=31); Alanine Aminotransfer ALT/SGPT 14 U/L (<=34); Albumin, Serum 4.4 g/dL (3.4-4.8); Alkaline Phosphatase 90 U/L (35-104); Anion Gap 10 (5-15); BUN 18 mg/dL (4-19); BUN/Creat Ratio 18.5 RATIO (10-20); Calcium,Total 9.4 mg/dL (7.6-11.0); Carbon Dioxide 24.7 mmol/L (21.0-32.0); Chloride 105 mmol/L (98-108); Globulin 1.6 g/dL (2.2-4.2); Glucose 88 mg/dL (70-99); Potassium 4.2 mmol/L (3.3-5.1)
[2025-06-09 00:01] LABS: Xtra Tube Kwok EXTRA TUBE
== END | disposition home or self-care (01) ==
LOC: POLAB3 15:58
PROVIDERS: PCP Family Medicine Geriatric Medicine; Visit Provider Family Medicine Geriatric Medicine
DX: I10 Essential (primary) hypertension (principal); E55.9 Vitamin D deficiency, unspecified
CPT/HCPCS: 36415; 80053; 80061; 82306; 84443; 85025